=== PATIENT | female | born 1985 | race Caucasian/White ===

== ENCOUNTER 2016-07-28 01:24 | Emergency (ER) | payer MEDICAID, SELFPAY ==
[2016-07-28] MEDS ORDERED: KETOROLAC 30 MG/ML VIAL (J1885) As Ordered ONE ×2 (06:02→06:45)
[2016-07-28 06:36] LABS: BASO % 0.3 % (0.0-1.0); EOS # 0.1 K/mm3 (0.0-0.50); EOS % 0.5 % (0.0-3.0); LARGE UNSTAINED CELL # 0.2 K/mm3 (0.0-0.4); LARGE UNSTAINED CELL % 1.7 % (0.0-4.0); LYMPH % 14.7 % (24.0-44.0); MEAN CORPUSCULAR HEMOGLOBIN 30.7 pg (27.0-33.0); MEAN CORPUSCULAR HGB CONC 34.5 g/dl (32.0-36.5); MEAN CORPUSCULAR VOLUME 88.8 fl (80.0-96.0); MONO # 0.7 K/mm3 (0.0-0.8); MONO % 5.2 % (0.0-5.0); NEUTROPHILS # 10.2 K/mm3 (1.8-7.7); NEUTROPHILS % 77.5 % (36.0-66.0); PLATELET COUNT, AUTOMATED 279 k/mm3 (150-450); RED CELL DISTRIBUTION WIDTH 11.3 % (11.5-14.5); WHITE BLOOD COUNT 13.2 K/mm3 (4.0-10.0)
[2016-07-28 06:59] LABS: ANION GAP 9 MEQ/L (8-16); BLOOD UREA NITROGEN 10 MG/DL (7-18); CALCIUM LEVEL 8.8 MG/DL (8.5-10.1); CARBON DIOXIDE LEVEL 26 MEQ/L (21-32); CHLORIDE LEVEL 99 MEQ/L (98-107); CREATININE FOR GFR 0.55 MG/DL (0.55-1.02); GLOMERULAR FILTRATION RATE > 60.0 (>60); GLUCOSE, FASTING 90 MG/DL (70-105); POTASSIUM SERUM 4.1 MEQ/L (3.5-5.1); SODIUM LEVEL 134 MEQ/L (136-145)
[2016-07-28 07:03] LABS: CONTROL LINE HCG INT CTR LINE PRESENT
--- NOTE | 2016-07-28 09:22 | EDDOCDS ---
Nurse's Notes [facility] Name: Shahrzad Carrion Age: 31 yrs Sex: Female : 1985 Arrival Date: 07/28/2016 Time: 01:24 Bed I8 / 16 Private MD: Diagnosis: Dental caries, unspecified-phlegmon - Osman's angina Presentation: 07/28 01:33 Presenting complaint: Patient states: Dental pain that began about a month ago when she lf1 broke several of her lower left and right molars. Pt reports that she did not seek dental care following th incident. Pt. reports since then she has developed increased pain in her jaw and throat with difficulty swallowing. Swelling noted to lower jaw and neck. Pain is currently 6/10. No drooling noted. Adult Sepsis Screening: The patient does not have new or worsening altered mentation. Patient's respiratory rate is less than 22. Systolic blood pressure is greater than 100. Patient has a qSOFA score of 0- Negative Sepsis Screen. Suicide/Homicide risk assessment- the patient denies having any suicidal and/or homicidal ideations and does not present with any other emotional, behavioral or mental health complaints. Status: Patient is not a counseling services manager or dependent. Transition of care: patient was not received from another setting of care. 01:33 Acuity: DENNIS Level 3 lf1 01:33 Method Of Arrival: Walkin/Carried/Asstd lf1 Triage Assessment: 01:42 General: Appears uncomfortable, Behavior is cooperative. Pain: Location: face Pain lf1 currently is 6 out of 10 on a pain scale. HIV screening NA for this visit Offered previously. Neurological: Level of Consciousness is awake, alert, Oriented to person, place, time. EENT: jaw and neck with swelling noted. Respiratory: Respiratory effort is even, unlabored. GI: Denies nausea, vomiting. Derm: Swollen area noted on chin, right jaw and left jaw. Injury Description: No known injury. 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 none - PMHx: heroin abuse; - PSHx: none; - Social history: Smoking status: Patient uses tobacco products, current every day smoker. No barriers to communication noted, The patient speaks fluent Sami, Speaks appropriately for age, Preferred Language: Sami. - Family history: Not pertinent. - : The pt / caregiver states he / she is not on anticoagulants. Home medication list is obtained from the patient. - Exposure Risk Screening:: None identified. Screenin:43 Screening information is obtained from the patient. Fall risk: No risks identified. lf1 Assistance ADL's: requires no assistance with activities of daily living. Abuse/DV Screen: The patient / caregiver reports he/she is: not in a situation that causes fear, pain or injury. Nutritional screening: No deficits noted. Advance Directives: Currently, there is no health care proxy. There is no active DNR order. home support is adequate. Assessment: 03:29 General: Appears uncomfortable, unkempt, Behavior is cooperative, Pt awaiting room lf1 assignment. Pain: Location: left jaw and right jaw and face Pain currently is 6 out of 10 on a pain scale. Neurological: Level of Consciousness is awake, alert. Respiratory: Respiratory effort is even, unlabored. Derm: Swollen area noted on left jaw and right jaw. 05:30 Adult Sepsis Screening: The patient does not have new or worsening altered mentation. cf2 Patient's respiratory rate is less than 22. Systolic blood pressure is greater than 100. Patient has a qSOFA score of 0- Negative Sepsis Screen. EENT: Poor dentition noted. Swelling to lower jaw. 08:00 General: Appears in no apparent distress, comfortable, Behavior is appropriate for age, ead cooperative. Neurological: Level of Consciousness is awake, alert, obeys commands. Respiratory: Airway is patent Respiratory effort is even, unlabored. Derm: Skin is pink, warm & dry. Swollen area noted on left jaw and right jaw. 09:00 General: Upon this nurse entering room to start IV, pt states she needs to go home and ead take care of her dogs prior to being admitted. This nurse strongly advises pt to remain in ER for treatment and admission as recommended by Dr. Valerio. Pt states she has no one to check on her dogs for her. Dr. Valerio to bedside to again advise pt against leaving AMA. Pt states she will return to ER for admission. Pt states she estimates it will take her approximately 30-45 minutes to go home and then return. Pt signed AMA form. Charge Nurse aware, PSA made aware . 09:12 Respiratory: Airway is patent Respiratory effort is even, unlabored. Derm: Skin is ead pink, warm & dry. Vital Signs: 01:33 BP 132 / 71; Pulse 119; Resp 18; Temp 98.2(T); Pulse Ox 97% on R/A; Weight 95.25 kg; lf1 Height 5 ft. 7 in. (170.18 cm); Pain 6/10; 03:29 BP 145 / 76; Pulse 111; Resp 18; Temp 98.0(T); Pulse Ox 98% on R/A; Pain 6/10; lf1 09:12 BP 139 / 71; Pulse 94; Resp 16; Temp 98.1(O); Pulse Ox 97% on R/A; Pain 4/10; ead 01:33 Body Mass Index 32.89 (95.25 kg, 170.18 cm) 1 Vitals: 01:33 Log In Time: July 28, 2016 at 01:26. 1 ED Course: 01:26 Patient visited by Verito See Reg. hs2 01:26 Patient moved to Waiting hs2 01:33 Patient moved to Triage 2 lf1 01:38 Triage Initiated lf1 01:45 Patient moved to Waiting lf1 01:57 [facility] Payment Agreement was scanned into [employer] and attached to record. pm4 03:31 Patient visited by Dia Tyson RN. lf1 03:31 Ice pack to injury. lf1 05:15 Patient moved to I8 / 16 mdr 05:23 Kassi Mathews,MAHI is Primary Nurse. cf2 05:24 Patient visited by Kassi Mathews,MAHI. cf2 05:30 The patient / caregiver is instructed regarding the plan of care and ED course. Patient cf2 has correct armband on for positive identification. Placed in gown. Bed in low position. Call light in reach. Side rails up X 1. Side rails up X2. Property :Personal belongings accompany Pt. Door closed. Noise minimized. Visitors limited. Lights dimmed. Moved to private room. Ice pack to injury. Verbal reassurance given. Warm blanket given. Pillow given. Head of bed elevated. 05:30 No procedures done that require assistance. cf2 05:39 Urbano Milian DO is Attending Physician. mm11 05:39 Patient visited by Urbano Milian DO. mm11 05:47 Patient visited by Urbano Milian DO. mm11 06:24 Patient visited by Kassi Mathews,MAHI. cf2 06:25 -Blood Culture Sent. cf2 06:25 CRP Sent. cf2 06:25 BMP Sent. cf2 06:25 CBC with Diff Sent. cf2 06:25 BLOOD CULTURES Sent. cf2 06:57 Patient visited by Kassi Mathews,MAHI. cf2 06:59 Radha Kemp,RN is Primary Nurse. ead 07:39 Attending Physician role handed off by Urbano Milian DO sd1 07:39 Marlena Moses MD is Attending Physician. sd1 08:06 Patient visited by Radha Kemp,MAHI. ead Administered Medications: 06:30 Drug: ketorolac 30 mg [ketorolac 30 mg/mL (1 mL) injection solution (1 mL)] Route: IVP; cf2 Site: left antecubital; Order Results: Lab Order: CBC with Diff; SPEC'M 07/28/16 06:21 Test: WHITE BLOOD COUNT; Value: 13.2; Range: 4.0-10.0; Abnormal: Above high normal; Units: K/mm3; Status: F Test: RED BLOOD COUNT; Value: 4.64; Range: 4.00-5.40; Units: M/mm3; Status: F Test: HEMOGLOBIN; Value: 14.2; Range: 12.0-16.0; Units: g/dl; Status: F Test: HEMATOCRIT; Value: 41.2; Range: 36.0-47.0; Units: %; Status: F Test: MEAN CORPUSCULAR VOLUME; Value: 88.8; Range: 80.0-96.0; Units: fl; Status: F Test: MEAN CORPUSCULAR HEMOGLOBIN; Value: 30.7; Range: 27.0-33.0; Units: pg; Status: F Test: MEAN CORPUSCULAR HGB CONC; Value: 34.5; Range: 32.0-36.5; Units: g/dl; Status: F Test: RED CELL DISTRIBUTION WIDTH; Value: 11.3; Range: 11.5-14.5; Abnormal: Below low normal; Units: %; Status: F Test: PLATELET COUNT, AUTOMATED; Value: 279; Range: 150-450; Units: k/mm3; Status: F Test: NEUTROPHILS %; Value: 77.5; Range: 36.0-66.0; Abnormal: Above high normal; Units: %; Status: F Test: LYMPH %; Value: 14.7; Range: 24.0-44.0; Abnormal: Below low normal; Units: %; Status: F Test: MONO %; Value: 5.2; Range: 0.0-5.0; Abnormal: Above high normal; Units: %; Status: F Test: EOS %; Value: 0.5; Range: 0.0-3.0; Units: %; Status: F Test: BASO %; Value: 0.3; Range: 0.0-1.0; Units: %; Status: F Test: LARGE UNSTAINED CELL %; Value: 1.7; Range: 0.0-4.0; Units: %; Status: F Test: NEUTROPHILS #; Value: 10.2; Range: 1.8-7.7; Abnormal: Above high normal; Units: K/mm3; Status: F Test: LYMPH #; Value: 2.0; Range: 1.5-4.5; Units: K/mm3; Status: F Test: MONO #; Value: 0.7; Range: 0.0-0.8; Units: K/mm3; Status: F Test: EOS #; Value: 0.1; Range: 0.0-0.50; Units: K/mm3; Status: F Test: BASO #; Value: 0.0; Range: 0.0-0.2; Units: K/mm3; Status: F Test: LARGE UNSTAINED CELL #; Value: 0.2; Range: 0.0-0.4; Units: K/mm3; Status: F Lab Order: [facility]; SPEC'M 07/28/16 06:21 Test: GLUCOSE, FASTING; Value: 90; Range: 70-105; Units: MG/DL; Status: F Test: BLOOD UREA NITROGEN; Value: 10; Range: 7-18; Units: MG/DL; Status: F Test: CREATININE FOR GFR; Value: 0.55; Range: 0.55-1.02; Units: MG/DL; Status: F Test: GLOMERULAR FILTRATION RATE; Value: > 60.0; Range: >60; Status: F Test: SODIUM LEVEL; Value: 134; Range: 136-145; Abnormal: Below low normal; Units: MEQ/L; Status: F Test: POTASSIUM SERUM; Value: 4.1; Range: 3.5-5.1; Units: MEQ/L; Status: F Test: CHLORIDE LEVEL; Value: 99; Range: 98-107; Units: MEQ/L; Status: F Test: CARBON DIOXIDE LEVEL; Value: 26; Range: 21-32; Units: MEQ/L; Status: F Test: ANION GAP; Value: 9; Range: 8-16; Units: MEQ/L; Status: F Test: CALCIUM LEVEL; Value: 8.8; Range: 8.5-10.1; Units: MG/DL; Status: F Test Note: ; Units are mL/min/1.73 m2 Chronic Kidney Disease Staging per NKF: Stage I & II GFR >=60 Normal to Mildly Decreased Stage III GFR 30-59 Moderately Decreased Stage IV GFR 15-29 Severely Decreased Stage V GFR <15 Very Little GFR Left ESRD GFR <15 on COMPONENT TECHNICIAN Lab Order: CRP; SPEC'M 07/28/16 06:21 Test: C REACTIVE PROTEIN QUANTITATIV; Value: 6.73; Range: 0.00-0.30; Abnormal: Above high normal; Units: MG/DL; Status: F Lab Order: HCG,Serum Qualitative; SPEC'M 07/28/16 06:21 Test: HCG, SERUM QUALITATIVE; Value: NEGATIVE; Range: NEGATIVE; Status: F Outcome: 09:08 Patient left against medical advice. sd1 09:19 Discharge Assessment: Patient awake and alert. obeys commands, Oriented to person, ead place and time. patient administered narcotics - no. The following High Risk Discharge criteria are identified: Yes, due to AMA status. PSA made aware. The patient is leaving AMA: AMA form signed. The patient is leaving AMA: Notification of AMA status is made to the charge nurse, the social work specialist, the ED attending physician. Condition: stable. Discharge instructions given to pt signed AMA form and advised to return to ER for admission. Pt states she will return shortly. CT Study completed. Property :Personal belongings accompany Pt. 09:21 Patient left the ED. ead Signatures: Marlena Moses MD MD sd1 Dia TysonRN RN lf1 Urbano Milian, DO DO mm11 Radha KempRN RN ead Norman Bruce, DESKTOP PUBLISHING ASSOCIATE DESKTOP PUBLISHING ASSOCIATE mdr Verito See, Reg Reg hs2 Kassi Mathews,RN RN cf2 Demetri Dickinson, Reg Reg pm4 Corrections: (The following items were deleted from the chart) : 09:19 BP 139 / 71; Pulse 94bpm; Resp 16bpm; Pulse Ox 97% RA; Temp 98.1F Oral; Pain ead 10/17; ead 09:16 General: Upon this nurse entering room to start IV, pt states she needs to go ead home and take care of her dogs prior to being admitted. This nurse strongly advises pt to remain in ER for treatment and admission as recommended by Dr. Valerio. Pt states she has no one to check on her dogs for her. Dr. Valerio to bedside to again advise pt against leaving AMA. Pt states she will return to ER for admission. Pt states she estimates it will take her approximately 30-45 minutes to go home and then return. Pt signed AMA form. Charge Nurse aware, PSA made aware . ead 09:16 Respiratory: Airway is patent Respiratory effort is even, unlabored, ead ead 09:16 Derm: Skin is pink, warm & dry. ead ead MTDD
--- NOTE | 2016-07-28 09:22 | EDDOCDS ---
Physician Documentation [facility] Name: Shahrzad Carrion Age: 31 yrs Sex: Female : 1985 Arrival Date: 07/28/2016 Time: 01:24 Bed I8 / Private MD: Disposition: 07/28/16 09:08 Patient has left against medical advice. Impression: Dental caries, unspecified - phlegmon - Osman's angina. - Patients states they are going to Home/Self Care. - Condition is Fair. Medication Reconciliation, Local Pharmacy Hours form. Follow up: Emergency Department; When: As soon as possible. - Problem is new. - Symptoms are unchanged. Historical: - Allergies: No known drug Allergies; - Home Meds: 1. none - PMHx: heroin abuse; - PSHx: none; - Social history: Smoking status: Patient uses tobacco products, current every day smoker. No barriers to communication noted, The patient speaks fluent [place] Rican, Speaks appropriately for age, Preferred Language: [place]ican. - Family history: Not pertinent. - : The pt / caregiver states he / she is not on anticoagulants. Home medication list is obtained from the patient. - Exposure Risk Screening:: None identified. 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 7 in. (170.18 cm); Pain 6/10; 03:29 BP 145 / 76; Pulse 111; Resp 18; Temp 98.0(T); Pulse Ox 98% on R/A; Pain 6/10; lf1 09:12 BP 139 / 71; Pulse 94; Resp 16; Temp 98.1(O); Pulse Ox 97% on R/A; Pain 4/10; ead 01:33 Body Mass Index 32.89 (95.25 kg, 170.18 cm) lf1 MDM: 01:57 [facility] Payment Agreement was scanned into [employer] and attached to record. pm4 05:48 IV Saline Lock ordered. mm11 05:48 -Blood Culture (Adults Only), peripheral from different site, or from device/port/PICC mm11 etc. if present ordered. 05:48 ketorolac 30 mg IVP once ordered. mm11 05:48 CBC with Diff Ordered. EDMS 05:48 BMP Ordered. EDMS 05:48 CRP Ordered. EDMS 05:48 -Blood Culture Ordered. EDMS 05:48 Financial registration complete. pm4 06:20 -Blood Culture (Adults Only), peripheral from different site, or from device/port/PICC kb5 etc. if present complete. 06:21 BLOOD CULTURES Ordered. EDMS 06:48 HCG,Serum Qualitative Ordered. EDMS 06:48 CBC with Diff Reviewed. mm11 06:48 CT Neck Without Contrast Ordered. EDMS 07:17 BMP Reviewed. mm11 07:17 CRP Reviewed. mm11 07:17 HCG,Serum Qualitative Reviewed. mm11 08:59 NS 0.9% 1000 ml IV at 150 mL/hr continuous ordered. sd1 09:00 Piperacillin-Tazobactam 4.5 grams IVPB once over 30 mins; dilute in 50mL of NS or D5W sd1 ordered. Administered Medications: 06:30 Drug: ketorolac 30 mg [ketorolac 30 mg/mL (1 mL) injection solution (1 mL)] Route: IVP; cf2 Site: left antecubital; Signatures: Dispatcher [employer] Marlena Thompson MD MD sd1 Garett Rojas, LOGISTICS LOSS PREVENTION MANAGER LOGISTICS LOSS PREVENTION MANAGER kb5 Dia Tyson,MAHI RN lf1 Urbano Milian, DO mm11 Radha Kemp,RN RN ead Kassi MathewsRN RN cf2 Demetri Dickinson, Reg Reg pm4 The chart was reviewed and I authenticate all verbal orders and agree with the evaluation and treatment provided.Attachments: 01:57 [facility] Payment Agreement pm4 MTDD
--- NOTE | 2016-07-28 09:36 | REP ---
CT NECK WITHOUT CONTRAST: HISTORY: Swelling. There is soft tissue thickening along the buccal surface of the bodies and symphysis on the mandible. There is thickening of the platysma muscle. Stranding is present in the submandibular spaces and overlying subcutaneous tissue . These findings are consistent with a phlegmon. The naso- and hypopharynx, larynx and subglottic trachea are normal in appearance. The salivary and thyroid glands are normal. An enlarged lymph node 1.1 cm in width is present in the right internal jugular chain at the level of the hypopharynx. Enlarged lymph nodes 1.2 and 1.5 cm in width are present in the left submandibular space. Small lymph nodes less than 1 cm in size are present in the left internal jugular chain, posterior triangles, right submandibular and submental areas. The lung apices are clear. Minimal mucosal thickening is present in the right maxillary sinus. IMPRESSION: The above findings are consistent with a phlegmon along the buccal surfaces of the bodies and symphysis of the mandible. Signed by Chay Elise MD 07/28/2016 09:50 A
--- NOTE | 2016-07-30 10:21 | EDDOCDS ---
Physician Documentation [facility] Name: Shahrzad Carrion Age: 31 yrs Sex: Female : 1985 Arrival Date: 07/28/2016 Time: 01:24 Bed I8 / Private MD: Disposition: 07/28/16 09:08 Patient has left against medical advice. Impression: Dental caries, unspecified - phlegmon - Osman's angina. - Patients states they are going to Home/Self Care. - Condition is Fair. Medication Reconciliation, Local Pharmacy Hours form. Follow up: Emergency Department; When: As soon as possible. - Problem is new. - Symptoms are unchanged. Historical: - Allergies: No known drug Allergies; - Home Meds: 1. none - PMHx: heroin abuse; - PSHx: none; - Social history: Smoking status: Patient uses tobacco products, current every day smoker. No barriers to communication noted, The patient speaks fluent Polish, Speaks appropriately for age, Preferred Language: Polish. - Family history: Not pertinent. - : The pt / caregiver states he / she is not on anticoagulants. Home medication list is obtained from the patient. - Exposure Risk Screening:: None identified. 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 7 in. (170.18 cm); Pain 6/10; 03:29 BP 145 / 76; Pulse 111; Resp 18; Temp 98.0(T); Pulse Ox 98% on R/A; Pain 6/10; lf1 09:12 BP 139 / 71; Pulse 94; Resp 16; Temp 98.1(O); Pulse Ox 97% on R/A; Pain 4/10; ead 01:33 Body Mass Index 32.89 (95.25 kg, 170.18 cm) lf1 MDM: 01:57 [facility] was scanned into [employer] and attached to record. pm4 05:48 IV Saline Lock ordered. mm11 05:48 -Blood Culture (Adults Only), peripheral from different site, or from device/port/PICC mm11 etc. if present ordered. 05:48 ketorolac 30 mg IVP once ordered. mm11 05:48 CBC with Diff Ordered. EDMS 05:48 BMP Ordered. EDMS 05:48 CRP Ordered. EDMS 05:48 -Blood Culture Ordered. EDMS 05:48 Financial registration complete. pm4 06:20 -Blood Culture (Adults Only), peripheral from different site, or from device/port/PICC kb5 etc. if present complete. 06:21 BLOOD CULTURES Ordered. EDMS 06:48 HCG,Serum Qualitative Ordered. EDMS 06:48 CBC with Diff Reviewed. mm11 06:48 CT Neck Without Contrast Ordered. EDMS 07:17 BMP Reviewed. mm11 07:17 CRP Reviewed. mm11 07:17 HCG,Serum Qualitative Reviewed. mm11 08:59 NS 0.9% 1000 ml IV at 150 mL/hr continuous ordered. sd1 09:00 Piperacillin-Tazobactam 4.5 grams IVPB once over 30 mins; dilute in 50mL of NS or D5W sd1 ordered. 13:25 Refusal of Services was scanned into [employer] and attached to record. gb 13:26 T-Sheet-- Draft Copy was scanned into [employer] and attached to record. gb 13:26 Radiology Report was scanned into [employer] and attached to record. gb Administered Medications: 06:30 Drug: ketorolac 30 mg [ketorolac 30 mg/mL (1 mL) injection solution (1 mL)] Route: IVP; cf2 Site: left antecubital; Signatures: Dispatcher [employer] Marlena Thompson MD MD sd1 Flores Rose, Reg Reg gb Garett Rojas, HUMAN RESOURCES ANALYST HUMAN RESOURCES ANALYST kb5 Dia TysonRN RN lf1 Urbano Milian, DO mm11 Radha Kemp,RN RN Kassi KhanRN RN cf2 Demetri Dickinson, Reg Reg pm4 The chart was reviewed and I authenticate all verbal orders and agree with the evaluation and treatment provided.Attachments: 01:57 [facility] Payment Agreement pm4 13:26 T-Sheet-- Draft Copy gb Chart Complete MTDD
--- NOTE | 2016-07-30 10:21 | EDDOCDS ---
Physician Documentation [facility] Name: Shahrzad Carrion Age: 31 yrs Sex: Female : 1985 Arrival Date: 07/28/2016 Time: 01:24 Bed I8 / Private MD: Disposition: 07/28/16 09:08 Patient has left against medical advice. Impression: Dental caries, unspecified - phlegmon - Osman's angina. - Patients states they are going to Home/Self Care. - Condition is Fair. Medication Reconciliation, Local Pharmacy Hours form. Follow up: Emergency Department; When: As soon as possible. - Problem is new. - Symptoms are unchanged. Historical: - Allergies: No known drug Allergies; - Home Meds: 1. none - PMHx: heroin abuse; - PSHx: none; - Social history: Smoking status: Patient uses tobacco products, current every day smoker. No barriers to communication noted, The patient speaks fluent Lithuanian, Speaks appropriately for age, Preferred Language: Lithuanian. - Family history: Not pertinent. - : The pt / caregiver states he / she is not on anticoagulants. Home medication list is obtained from the patient. - Exposure Risk Screening:: None identified. 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 7 in. (170.18 cm); Pain 6/10; 03:29 BP 145 / 76; Pulse 111; Resp 18; Temp 98.0(T); Pulse Ox 98% on R/A; Pain 6/10; lf1 09:12 BP 139 / 71; Pulse 94; Resp 16; Temp 98.1(O); Pulse Ox 97% on R/A; Pain 4/10; ead 01:33 Body Mass Index 32.89 (95.25 kg, 170.18 cm) lf1 MDM: 01:57 [facility] [place] Agreement was scanned into [employer] and attached to record. pm4 05:48 IV Saline Lock ordered. mm11 05:48 -Blood Culture (Adults Only), peripheral from different site, or from device/port/PICC mm11 etc. if present ordered. 05:48 ketorolac 30 mg IVP once ordered. mm11 05:48 CBC with Diff Ordered. EDMS 05:48 BMP Ordered. EDMS 05:48 CRP Ordered. EDMS 05:48 -Blood Culture Ordered. EDMS 05:48 Financial registration complete. pm4 06:20 -Blood Culture (Adults Only), peripheral from different site, or from device/port/PICC kb5 etc. if present complete. 06:21 BLOOD CULTURES Ordered. EDMS 06:48 HCG,Serum Qualitative Ordered. EDMS 06:48 CBC with Diff Reviewed. mm11 06:48 CT Neck Without Contrast Ordered. EDMS 07:17 BMP Reviewed. mm11 07:17 CRP Reviewed. mm11 07:17 HCG,Serum Qualitative Reviewed. mm11 08:59 NS 0.9% 1000 ml IV at 150 mL/hr continuous ordered. sd1 09:00 Piperacillin-Tazobactam 4.5 grams IVPB once over 30 mins; dilute in 50mL of NS or D5W sd1 ordered. 13:25 Refusal of Services was scanned into [employer] and attached to record. gb 13:26 T-Sheet-- Draft Copy was scanned into [employer] and attached to record. gb 13:26 Radiology Report was scanned into [employer] and attached to record. gb Administered Medications: 06:30 Drug: ketorolac 30 mg [ketorolac 30 mg/mL (1 mL) injection solution (1 mL)] Route: IVP; cf2 Site: left antecubital; Signatures: Dispatcher [employer] Marlena Thompson MD MD sd1 Flores Rose, Reg Reg gb Garett Rojas, FUR SEWER FUR SEWER kb5 Dia TysonRN RN lf1 Urbano Milian, DO mm11 Radha Kemp,RN RN Kassi KhanRN RN cf2 Demetri Dickinson, Reg Reg pm4 The chart was reviewed and I authenticate all verbal orders and agree with the evaluation and treatment provided.Attachments: 01:57 [facility] Agreement pm4 13:26 T-Sheet-- Draft Copy gb Chart Complete MTDD
--- NOTE | 2016-07-30 10:22 | EDDOCDS ---
Nurse's Notes [facility] Name: Shahrzad Carrion Age: 31 yrs Sex: Female : 1985 Arrival Date: 07/28/2016 Time: 01:24 Bed I8 / 16 Private MD: Diagnosis: Dental caries, unspecified-phlegmon - Osman's angina Presentation: 07/28 01:33 Presenting complaint: Patient states: Dental pain that began about a month ago when she lf1 broke several of her lower left and right molars. Pt reports that she did not seek dental care following th incident. Pt. reports since then she has developed increased pain in her jaw and throat with difficulty swallowing. Swelling noted to lower jaw and neck. Pain is currently 6/10. No drooling noted. Adult Sepsis Screening: The patient does not have new or worsening altered mentation. Patient's respiratory rate is less than 22. Systolic blood pressure is greater than 100. Patient has a qSOFA score of 0- Negative Sepsis Screen. Suicide/Homicide risk assessment- the patient denies having any suicidal and/or homicidal ideations and does not present with any other emotional, behavioral or mental health complaints. Status: Patient is not a customer services supervisor or dependent. Transition of care: patient was not received from another setting of care. 01:33 Acuity: DENNIS Level 3 lf1 01:33 Method Of Arrival: Walkin/Carried/Asstd lf1 Triage Assessment: 01:42 General: Appears uncomfortable, Behavior is cooperative. Pain: Location: face Pain lf1 currently is 6 out of 10 on a pain scale. HIV screening NA for this visit Offered previously. Neurological: Level of Consciousness is awake, alert, Oriented to person, place, time. EENT: jaw and neck with swelling noted. Respiratory: Respiratory effort is even, unlabored. GI: Denies nausea, vomiting. Derm: Swollen area noted on chin, right jaw and left jaw. Injury Description: No known injury. EVENT MANAGEMENT CONSULTANT: 01:33 3, 1, Living 2, LMP 04/2016 lf1 Historical: - Allergies: No known drug Allergies; - Home Meds: 1. none - PMHx: heroin abuse; - PSHx: none; - Social history: Smoking status: Patient uses tobacco products, current every day smoker. No barriers to communication noted, The patient speaks fluent Lao, Speaks appropriately for age, Preferred Language: Lao. - Family history: Not pertinent. - : The pt / caregiver states he / she is not on anticoagulants. Home medication list is obtained from the patient. - Exposure Risk Screening:: None identified. Screenin:43 Screening information is obtained from the patient. Fall risk: No risks identified. lf1 Assistance ADL's: requires no assistance with activities of daily living. Abuse/DV Screen: The patient / caregiver reports he/she is: not in a situation that causes fear, pain or injury. Nutritional screening: No deficits noted. Advance Directives: Currently, there is no health care proxy. There is no active DNR order. home support is adequate. Assessment: 03:29 General: Appears uncomfortable, unkempt, Behavior is cooperative, Pt awaiting room lf1 assignment. Pain: Location: left jaw and right jaw and face Pain currently is 6 out of 10 on a pain scale. Neurological: Level of Consciousness is awake, alert. Respiratory: Respiratory effort is even, unlabored. Derm: Swollen area noted on left jaw and right jaw. 05:30 Adult Sepsis Screening: The patient does not have new or worsening altered mentation. cf2 Patient's respiratory rate is less than 22. Systolic blood pressure is greater than 100. Patient has a qSOFA score of 0- Negative Sepsis Screen. EENT: Poor dentition noted. Swelling to lower jaw. 08:00 General: Appears in no apparent distress, comfortable, Behavior is appropriate for age, ead cooperative. Neurological: Level of Consciousness is awake, alert, obeys commands. Respiratory: Airway is patent Respiratory effort is even, unlabored. Derm: Skin is pink, warm & dry. Swollen area noted on left jaw and right jaw. 09:00 General: Upon this nurse entering room to start IV, pt states she needs to go home and ead take care of her dogs prior to being admitted. This nurse strongly advises pt to remain in ER for treatment and admission as recommended by Dr. Valerio. Pt states she has no one to check on her dogs for her. Dr. Valerio to bedside to again advise pt against leaving AMA. Pt states she will return to ER for admission. Pt states she estimates it will take her approximately 30-45 minutes to go home and then return. Pt signed AMA form. Charge Nurse aware, PSA made aware . 09:12 Respiratory: Airway is patent Respiratory effort is even, unlabored. Derm: Skin is ead pink, warm & dry. Social Work Consult: 12:16 LWBS/AMA AMA: Patient is refusing further stabilizing treatment at [facility], although ca offered treatment regardless of method of payment or ability to pay. Patient is aware that this action is being undertaken against the advice of the medical staff at [facility]. Pt. has capacity to understand the potential consequences of this choice. pt did notify ED staff. Patient / guardian did sign Refusal of Services form. Pt left before being seen by PSA. Vital Signs: 01:33 BP 132 / 71; Pulse 119; Resp 18; Temp 98.2(T); Pulse Ox 97% on R/A; Weight 95.25 kg; lf1 Height 5 ft. 7 in. (170.18 cm); Pain 6/10; 03:29 BP 145 / 76; Pulse 111; Resp 18; Temp 98.0(T); Pulse Ox 98% on R/A; Pain 6/10; lf1 09:12 BP 139 / 71; Pulse 94; Resp 16; Temp 98.1(O); Pulse Ox 97% on R/A; Pain 4/10; ead 01:33 Body Mass Index 32.89 (95.25 kg, 170.18 cm) [facility] Vitals: 01:33 Log In Time: July 28, 2016 at 01:26. 1 ED Course: 01:26 Patient visited by eVrito See Reg. hs2 01:26 Patient moved to Waiting hs2 01:33 Patient moved to Triage 2 lf1 01:38 Triage Initiated lf1 01:45 Patient moved to Waiting lf1 01:57 [facility] Payment Agreement was scanned into [employer] and attached to record. pm4 03:31 Patient visited by Dia Tyson RN. lf1 03:31 Ice pack to injury. lf1 05:15 Patient moved to I8 / 16 mdr 05:23 Kassi Mathews,RN is Primary Nurse. cf2 05:24 Patient visited by Kassi Mathews,MAHI. cf2 05:30 The patient / caregiver is instructed regarding the plan of care and ED course. Patient cf2 has correct armband on for positive identification. Placed in gown. Bed in low position. Call light in reach. Side rails up X 1. Side rails up X2. Property :Personal belongings accompany Pt. Door closed. Noise minimized. Visitors limited. Lights dimmed. Moved to private room. Ice pack to injury. Verbal reassurance given. Warm blanket given. Pillow given. Head of bed elevated. 05:30 No procedures done that require assistance. cf2 05:39 Urbano Milian DO is Attending Physician. mm11 05:39 Patient visited by Urbano Milian DO. mm11 05:47 Patient visited by Urbano Milian DO. mm11 06:24 Patient visited by Kassi Mathews,RN. cf2 06:25 -Blood Culture Sent. cf2 06:25 CRP Sent. cf2 06:25 BMP Sent. cf2 06:25 CBC with Diff Sent. cf2 06:25 BLOOD CULTURES Sent. cf2 06:57 Patient visited by Kassi Mathews,RN. cf2 06:59 Radha Kemp,RN is Primary Nurse. ead 07:39 Attending Physician role handed off by Urbano Milian DO sd1 07:39 Marlena Moses MD is Attending Physician. sd1 08:06 Patient visited by Radha Kemp,MAHI. ead 09:48 CT Neck Without Contrast Returned. EDMS 13:25 Refusal of Services was scanned into [employer] and attached to record. gb 13:26 T-Sheet-- Draft Copy was scanned into [employer] and attached to record. gb 13:26 Radiology Report was scanned into [employer] and attached to record. gb 07/29 06:27 Patient name changed from Shahrzad\S\Lula\S\Hedger\S\ to Shahrzad\S\C\S\Hedger. EDMS Administered Medications: 07/28 06:30 Drug: ketorolac 30 mg [ketorolac 30 mg/mL (1 mL) injection solution (1 mL)] Route: IVP; cf2 Site: left antecubital; Attachments: 13:25 Refusal of Services gb Order Results: Lab Order: CBC with Diff; SPEC'M 07/28/16 06:21 Test: WHITE BLOOD COUNT; Value: 13.2; Range: 4.0-10.0; Abnormal: Above high normal; Units: K/mm3; Status: F Test: RED BLOOD COUNT; Value: 4.64; Range: 4.00-5.40; Units: M/mm3; Status: F Test: HEMOGLOBIN; Value: 14.2; Range: 12.0-16.0; Units: g/dl; Status: F Test: HEMATOCRIT; Value: 41.2; Range: 36.0-47.0; Units: %; Status: F Test: MEAN CORPUSCULAR VOLUME; Value: 88.8; Range: 80.0-96.0; Units: fl; Status: F Test: MEAN CORPUSCULAR HEMOGLOBIN; Value: 30.7; Range: 27.0-33.0; Units: pg; Status: F Test: MEAN CORPUSCULAR HGB CONC; Value: 34.5; Range: 32.0-36.5; Units: g/dl; Status: F Test: RED CELL DISTRIBUTION WIDTH; Value: 11.3; Range: 11.5-14.5; Abnormal: Below low normal; Units: %; Status: F Test: PLATELET COUNT, AUTOMATED; Value: 279; Range: 150-450; Units: k/mm3; Status: F Test: NEUTROPHILS %; Value: 77.5; Range: 36.0-66.0; Abnormal: Above high normal; Units: %; Status: F Test: LYMPH %; Value: 14.7; Range: 24.0-44.0; Abnormal: Below low normal; Units: %; Status: F Test: MONO %; Value: 5.2; Range: 0.0-5.0; Abnormal: Above high normal; Units: %; Status: F Test: EOS %; Value: 0.5; Range: 0.0-3.0; Units: %; Status: F Test: BASO %; Value: 0.3; Range: 0.0-1.0; Units: %; Status: F Test: LARGE UNSTAINED CELL %; Value: 1.7; Range: 0.0-4.0; Units: %; Status: F Test: NEUTROPHILS #; Value: 10.2; Range: 1.8-7.7; Abnormal: Above high normal; Units: K/mm3; Status: F Test: LYMPH #; Value: 2.0; Range: 1.5-4.5; Units: K/mm3; Status: F Test: MONO #; Value: 0.7; Range: 0.0-0.8; Units: K/mm3; Status: F Test: EOS #; Value: 0.1; Range: 0.0-0.50; Units: K/mm3; Status: F Test: BASO #; Value: 0.0; Range: 0.0-0.2; Units: K/mm3; Status: F Test: LARGE UNSTAINED CELL #; Value: 0.2; Range: 0.0-0.4; Units: K/mm3; Status: F Lab Order: BMP; SPEC'M 07/28/16 06:21 Test: GLUCOSE, FASTING; Value: 90; Range: 70-105; Units: MG/DL; Status: F Test: BLOOD UREA NITROGEN; Value: 10; Range: 7-18; Units: MG/DL; Status: F Test: CREATININE FOR GFR; Value: 0.55; Range: 0.55-1.02; Units: MG/DL; Status: F Test: GLOMERULAR FILTRATION RATE; Value: > 60.0; Range: >60; Status: F Test: SODIUM LEVEL; Value: 134; Range: 136-145; Abnormal: Below low normal; Units: MEQ/L; Status: F Test: POTASSIUM SERUM; Value: 4.1; Range: 3.5-5.1; Units: MEQ/L; Status: F Test: CHLORIDE LEVEL; Value: 99; Range: 98-107; Units: MEQ/L; Status: F Test: CARBON DIOXIDE LEVEL; Value: 26; Range: 21-32; Units: MEQ/L; Status: F Test: ANION GAP; Value: 9; Range: 8-16; Units: MEQ/L; Status: F Test: CALCIUM LEVEL; Value: 8.8; Range: 8.5-10.1; Units: MG/DL; Status: F Test Note: ; Units are mL/min/1.73 m2 Chronic Kidney Disease Staging per NKF: Stage I & II GFR >=60 Normal to Mildly Decreased Stage III GFR 30-59 Moderately Decreased Stage IV GFR 15-29 Severely Decreased Stage V GFR <15 Very Little GFR Left ESRD GFR <15 on CERTIFIED CREDIT COUNSELOR Lab Order: CRP; SPEC'M 07/28/16 06:21 Test: C REACTIVE PROTEIN QUANTITATIV; Value: 6.73; Range: 0.00-0.30; Abnormal: Above high normal; Units: MG/DL; Status: F Lab Order: -Blood Culture; SPEC'M 07/28/16 06:21 Test: BLOOD CULTURE; Value: No growth after 24 hours . All specimens observed; Status: F Test: BLOOD CULTURE; Value: for 5 days. Results final at that time.; Status: F Test: BLOOD CULTURE; Value: No Growth after 48 hours. All Specimens observed; Status: F Test: BLOOD CULTURE; Value: for 7 days. Results final at that time.; Status: F Lab Order: BLOOD CULTURES; SPEC'M 07/28/16 06:21 Test: BLOOD CULTURE; Value: No growth after 24 hours . All specimens observed; Status: F Test: BLOOD CULTURE; Value: for 5 days. Results final at that time.; Status: F Test: BLOOD CULTURE; Value: No Growth after 48 hours. All Specimens observed; Status: F Test: BLOOD CULTURE; Value: for 7 days. Results final at that time.; Status: F Lab Order: HCG,Serum Qualitative; SPEC'M 07/28/16 06:21 Test: HCG, SERUM QUALITATIVE; Value: NEGATIVE; Range: NEGATIVE; Status: F Radiology Order: CT Neck Without Contrast Test: CT Neck Without Contrast REASON FOR EXAMINATION: swelling; CT NECK WITHOUT CONTRAST: HISTORY: Swelling.; ; There is soft tissue thickening along the buccal surface of the bodies and; symphysis on the mandible. There is thickening of the platysma muscle.; Stranding is present in the submandibular spaces and overlying subcutaneous; tissue . These findings are consistent with a phlegmon. The naso- and; hypopharynx, larynx and subglottic trachea are normal in appearance. The; salivary and thyroid glands are normal. An enlarged lymph node 1.1 cm in width; is present in the right internal jugular chain at the level of the hypopharynx.; Enlarged lymph nodes 1.2 and 1.5 cm in width are present in the left; submandibular space. Small lymph nodes less than 1 cm in size are present in the; left internal jugular chain, posterior triangles, right submandibular and; submental areas. The lung apices are clear. Minimal mucosal thickening is; present in the right maxillary sinus.; ; IMPRESSION:; ; The above findings are consistent with a phlegmon along the buccal surfaces of; the bodies and symphysis of the mandible.; ; ; Signed by; Chay Elise MD 07/28/2016 09:50 A; Outcome: 09:08 Patient left against medical advice. sd1 09:19 Discharge Assessment: Patient awake and alert. obeys commands, Oriented to person, ead place and time. patient administered narcotics - no. The following High Risk Discharge criteria are identified: Yes, due to AMA status. PSA made aware. The patient is leaving AMA: AMA form signed. The patient is leaving AMA: Notification of AMA status is made to the charge nurse, the hospital social worker, the ED attending physician. Condition: stable. Discharge instructions given to pt signed AMA form and advised to return to ER for admission. Pt states she will return shortly. CT Study completed. Property :Personal belongings accompany Pt. 09:21 Patient left the ED. ead Signatures: Dispatcher [employer] EDMS Marlena Moses MD MD sd1 Evon Bruce, PSA PSA ca Flores Rose, Reg Reg gb Dia Tyson,RN RN lf1 Urbano Milian, DO DO mm11 Radha Kemp,RN RN ead Norman Bruce, LU ECHO VASCULAR TECHNOLOGIST Verito Bernal, Reg Reg hs2 Kassi Mathews,RN RN cf2 Demetri Dickinson, Reg Reg pm4 Corrections: (The following items were deleted from the chart) 09:19 09:19 BP 139 / 71; Pulse 94bpm; Resp 16bpm; Pulse Ox 97% RA; Temp 98.1F Oral; Pain ead 4/10; ead 09:19 09:16 General: Upon this nurse entering room to start IV, pt states she needs to go ead home and take care of her dogs prior to being admitted. This nurse strongly advises pt to remain in ER for treatment and admission as recommended by Dr. Valerio. Pt states she has no one to check on her dogs for her. Dr. Valerio to bedside to again advise pt against leaving AMA. Pt states she will return to ER for admission. Pt states she estimates it will take her approximately 30-45 minutes to go home and then return. Pt signed AMA form. Charge Nurse aware, PSA made aware . speedyd Respiratory: Airway is patent Respiratory effort is even, unlabored, ead ead Derm: Skin is pink, warm & dry. ead speedyd Chart Complete MTDD
== END 2016-07-28 09:10 | disposition left against medical advice (07) ==
LOC: M ED 01:24
DX: K02.9 Dental caries, unspecified (principal); I20.9 Angina pectoris, unspecified; F11.10 Opioid abuse, uncomplicated; F17.210 Nicotine dependence, cigarettes, uncomplicated
CPT/HCPCS: 36415; 70490; 80048; 84703; 85025; 86140; 87040; 96374; 99284; J1885

== ENCOUNTER 2016-07-28 20:41 | Inpatient (IN) | payer MEDICAID ==
[~2016-07-28] VITALS: Ht 170.2 cm; Wt 95.0 kg
[2016-07-28] MEDS ORDERED: ZOSYN 3.375 GM VIAL (J2543) As Ordered ONE (22:19)
[2016-07-28] MEDS ORDERED: KETOROLAC 30 MG/ML VIAL (J1885) As Ordered ONE (22:19)
[2016-07-28] MEDS ORDERED: ONDANSETRON 4MG/2ML VIAL (J2405) IV PRN (22:30)
[2016-07-28] MEDS ORDERED: KETOROLAC 30 MG/ML VIAL (J1885) IV PRN (22:30)
[2016-07-28] MEDS ORDERED: VANCOMYCIN 1000 MG/20 ML VIAL (J3370) As Ordered ONE (23:05)
--- NOTE | 2016-07-28 23:33 | EDDOCDS ---
Nurse's Notes [facility] Name: Shahrzad Carrion Age: 31 yrs Sex: Female : 1985 Arrival Date: 07/28/2016 Time: 20:41 Bed I2 / M2 Private MD: NO PRIMARY PHYSICIAN, . Diagnosis: Cellulitis and abscess of mouth-Osman's Angina;Dental caries-Fracture of Tooth #19 and #30 Presentation: 07/28 20:46 Presenting complaint: Patient states: PER PT WAS SEEN HERE EARLIER TODAY & SIGNED OUT tm5 AMA BACK FOR ADMISSION TO THE HOSPITAL FOR FACIAL SWELLING/CELLULITIS. Adult Sepsis Screening: The patient does not have new or worsening altered mentation. Patient's respiratory rate is less than 22. Systolic blood pressure is greater than 100. Patient has a qSOFA score of 0- Negative Sepsis Screen. Suicide/Homicide risk assessment- the patient denies having any suicidal and/or homicidal ideations and does not present with any other emotional, behavioral or mental health complaints. Status: Patient is not a room service associate or dependent. Transition of care: patient was not received from another setting of care. 20:46 Acuity: DENNIS Level 3 tm5 20:46 Method Of Arrival: Walkin/Carried/Asstd tm5 Triage Assessment: 20:47 General: Appears uncomfortable, Behavior is appropriate for age, cooperative. Pain: tm5 Location: left cheek and left jaw Pain currently is 6 out of 10 on a pain scale. Quality of pain is described as pressure, throbbing. Pt Declines HIV testing. Neurological: Level of Consciousness is awake, alert, Oriented to person, place, time. EENT: LEFT SIDED FACIAL SWELLING NOTED. Respiratory: Airway is patent Respiratory effort is even, unlabored, Respiratory pattern is regular, symmetrical. Derm: Skin is pink, warm & dry. normal. 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 none - PMHx: heroin abuse; - PSHx: none; - Social history: Smoking status: Patient uses tobacco products, current every day smoker. No barriers to communication noted, The patient speaks fluent Maltese. - Family history: Not pertinent. - : The pt / caregiver states he / she is not on anticoagulants. Home medication list is obtained from the patient. - Exposure Risk Screening:: None identified. Screenin:50 Screening information is obtained from the patient. Fall risk: No risks identified. tm5 Assistance ADL's: requires no assistance with activities of daily living. Abuse/DV Screen: The patient / caregiver reports he/she is: not in a situation that causes fear, pain or injury. Nutritional screening: No deficits noted. Advance Directives: Currently, there is no health care proxy. There is no active DNR order. home support is adequate. Assessment: 21:39 General: Appears in no apparent distress, Behavior is cooperative. EENT: pt has af2 swelling noted to right jaw. . Respiratory: Airway is patent Respiratory effort is even, unlabored. 22:29 General: Appears in no apparent distress, Behavior is cooperative, pt lying quietly on af2 stretcher, offers no complaints at this time.. 23:23 General: Appears in no apparent distress, Behavior is cooperative, pt resting quietly af2 with eyes closed. arouses easily to name. offers no complaints. admit nurse at bedside with pt. . Vital Signs: 20:43 BP 145 / 69; Pulse 134; Resp 16; Temp 97.9(O); Pulse Ox 95% on R/A; Weight 95.25 kg; sew Height 5 ft. 7 in. (170.18 cm); Pain 6/10; 23:29 BP 109 / 59; Pulse 92; Resp 18; Temp 98.2(O); Pulse Ox 94% on R/A; Pain 3/10; rs6 20:43 Body Mass Index 32.89 (95.25 kg, 170.18 cm) sew Vitals: 20:43 Log In Time: July 28, 2016 at 20:39. RN notified that patient meets Red Flag sew criteria. ED Course: 20:42 Patient visited by Marlena Todd. sew 20:42 Patient moved to Waiting sew 20:43 NO PRIMARY PHYSICIAN, . is Private Physician. sew 20:44 Patient visited by Marlena Todd. sew 20:44 Adelina Rosenbaum PA-C is PHCP. ef1 20:44 Urbano Milian DO is Attending Physician. ef1 20:44 Patient moved to Pre RCE sew 20:45 Patient moved to I2 / M2 ef1 20:47 Triage Initiated tm5 20:47 Family accompanied patient. tm5 20:48 Patient visited by Adelina Rosenbaum PA-C. ef1 21:05 Jakub Villatoro is Hospitalizing Provider. ef1 21:37 The patient / caregiver is instructed regarding the plan of care and ED course. af2 21:37 Missed attempts: 22 gauge X 2 in right wrist, in right antecubital area. No procedures af2 done that require assistance. 21:40 Patient visited by Shahrzad French RN. af2 21:49 [facility] Payment Agreement was scanned into [employer] and attached to record. zo 21:52 Patient name changed from Shahrzad\S\Lula\S\Hedger\S\ to Shahrzad\S\C\S\Hedger. EDMS 21:54 Quentin Jackson MD is Hospitalizing Provider. ef1 22:29 Patient visited by Shahrzad French RN. af2 22:49 Patient visited by Shahrzad French RN. af2 23:24 Patient visited by Shahrzad French RN. af2 23:30 Patient visited by Lisa Giraldo PCA. rs6 Administered Medications: 22:28 Drug: Piperacillin-Tazobactam 3.375 grams [piperacillin-tazobactam 3.375 gram af2 intravenous solution] Route: IVPB; Infused Over: 30 mins; Site: left antecubital; 22:28 Drug: ketorolac 30 mg [ketorolac 30 mg/mL (1 mL) injection solution (1 mL)] Route: IVP; af2 Site: left antecubital; 23:16 Drug: vancomycin 1 grams [vancomycin 1,000 mg intravenous injection] Route: IVPB; af2 Infused Over: 60 mins; Site: left antecubital; Order Results: There are currently no results for this order. Outcome: 21:05 Decision to Hospitalize by Provider. ef1 22:47 Discharge Assessment: Patient awake, alert and oriented x 3. No cognitive and/or af2 functional deficits noted. Patient verbalized understanding of disposition instructions. patient administered narcotics - no. The following High Risk Discharge criteria are identified: None. Admitted to Med/Surg accompanied by tech, via wheelchair, with chart. Condition: stable. No special radiology studies were completed. Property :Personal belongings accompany Pt. 23:32 Patient left the ED. rs6 Signatures: Dispatcher [employer] Janice Gonzalez Erica, PA-C PA-C ef1 Marlena Todd, Lisa, WASTE DUSTER WASTE DUSTER rs6 Shahrzad French,RN RN af2 Martha Vaz,RN RN tm5 MTDD
--- NOTE | 2016-07-28 23:33 | EDDOCDS ---
Physician Documentation [facility] Name: Shahrzad Carrion Age: 31 yrs Sex: Female : 1985 Arrival Date: 07/28/2016 Time: 20:41 Bed I2 / M2 Private MD: NO PRIMARY PHYSICIAN, . Disposition: 07/28/16 21:05 Hospitalization ordered by Quentin Jackson for Inpatient Admission. Preliminary diagnosis are Cellulitis and abscess of mouth - Osman's Angina, Dental caries - Fracture of Tooth #19 and #30. - Bed requested for 4 [place]. - Status is Inpatient Admission. rs6 - Condition is Stable. - Problem is new. - Symptoms have improved. Historical: - Allergies: no known allergies; - Home Meds: 1. none - PMHx: heroin abuse; - PSHx: none; - Social history: Smoking status: Patient uses tobacco products, current every day smoker. No barriers to communication noted, The patient speaks fluent Indonesian. - Family history: Not pertinent. - : The pt / caregiver states he / she is not on anticoagulants. Home medication list is obtained from the patient. - Exposure Risk Screening:: None identified. 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 7 in. (170.18 cm); Pain 6/10; 23:29 BP 109 / 59; Pulse 92; Resp 18; Temp 98.2(O); Pulse Ox 94% on R/A; Pain 3/10; rs6 20:43 Body Mass Index 32.89 (95.25 kg, 170.18 cm) sew MDM: 20:48 BED REQUEST+ADM ordered. EDMS 20:54 IV Saline Lock ordered. ef1 20:54 Piperacillin-Tazobactam 3.375 grams IVPB once over 30 mins; dilute in 50mL of NS or D5W ef1 ordered. 20:54 vancomycin 1 grams IVPB once over 60 mins; dilute in 250mL of NS or D5W ordered. ef1 21:13 ketorolac 30 mg IVP once ordered. ef1 21:47 Financial registration complete. zo 21:49 [facility] Payment Agreement was scanned into [employer] and attached to record. zo 22:28 Admission / Observation Status ordered. EDMS 22:28 REGULAR DIET ordered. EDMS 22:47 Attending Doctor Change: ordered. EDMS 22:51 Chest, 2 view PA, Lat Ordered. EDMS Administered Medications: 22:28 Drug: Piperacillin-Tazobactam 3.375 grams [piperacillin-tazobactam 3.375 gram af2 intravenous solution] Route: IVPB; Infused Over: 30 mins; Site: left antecubital; 22:28 Drug: ketorolac 30 mg [ketorolac 30 mg/mL (1 mL) injection solution (1 mL)] Route: IVP; af2 Site: left antecubital; 23:16 Drug: vancomycin 1 grams [vancomycin 1,000 mg intravenous injection] Route: IVPB; af2 Infused Over: 60 mins; Site: left antecubital; Signatures: Dispatcher [employer] EDMS Janice Corona Erica, PA-C PA-C ef1 Lisa Giraldo, DENTAL FLOSS PACKER DENTAL FLOSS PACKER rs6 Shahrzad FrenchRN RN af2 Dia Bedoya RN RN lmg Martha VazRN RN tm5 The chart was reviewed and I authenticate all verbal orders and agree with the evaluation and treatment provided.Attachments: 21:49 [facility] Payment Agreement zo MTDD
[2016-07-28 23:50] VITALS: BP 116/57
[2016-07-29] MEDS: methylPREDNISolone INJ 125 MG/2 ML VIAL (J2930) IV SCH ×4 (00:42→18:30)
--- NOTE | 2016-07-29 02:00 | REP ---
Clinical: Acute cough . Comparison: 02/26/2014 . Technique: PA and lateral. Findings: The mediastinum and cardiac silhouette are normal. The lung mccord are clear and without acute consolidation, effusion, or pneumothorax. The skeletal structures are intact and normal. Impression: 1. No acute cardiopulmonary process. Signed by Howard Galvan MD 07/29/2016 01:51 A
--- NOTE | 2016-07-29 04:10 | HPE ---
DATE OF ADMISSION: 07/28/2016 This is a patient of the [facility]. CHIEF COMPLAINT: Facial swelling. The following is a summary of presentation: This is a 31-year-old who has had 3 days of left-sided facial swelling that increased and was incredibly painful last night, so painful in fact that she could not sleep. She was cold and sweaty. Her left lower jaw is described as achy. It has impaired her swallowing. She has had drooling. It has been difficult to talk. It feels better when she puts cold water in her mouth. She has never had this happen before. She has been coughing, producing greenish sputum. She recently left a 4-day inpatient detoxification at [facility]. Prior to that she had been using heroin daily for at least 2 years. She has been again using heroin in the last 2 days because of her pain. PAST MEDICAL HISTORY: Notable for: 1. Anxiety. 2. Morbid obesity. 3. Bipolar. 4. Borderline personality. 5. Alcoholism. 6. History of self-mutilation. 6. Depression. 7. History of heroin dependence. SURGICAL HISTORY: Notable for wisdom teeth extraction. She has no known drug allergies. She is not taking any medications at home. Socially, her family is aware of her drug addiction. She continues to smoke. She is currently in [facility]. FAMILY HISTORY: Notable for two children, ages eight and 14. The mother, who is 48, with a history of vulvar cancer, thyroid disease. Father 51 with diabetes and alcoholism. REVIEW OF SYSTEMS: Notable for no headache, no visual changes. No runny nose. No chest pain. No shortness of breath, orthopnea. No paroxysmal nocturnal dyspnea. No change in bowel or bladder habits. She is not suffering from constipation. Otherwise unremarkable. PHYSICAL EXAMINATION: Blood pressure 139/71, pulse 94, respiratory rate 16, temperature 98.1, pulse oximetry 97% on room air. Weighs 95 kg with a body mass index of 32.9. She is awake, appropriately interactive, somewhat flattened affect, but pleasantly conversant. Head is normocephalic. Sinuses are nontender. There is induration, swelling and warmth without fluctuance to her left mandible and onto her submental region. The area is tender. She is able to open her mouth. I am able to visualize her soft palate, which has good range of motion. Her voice seems to be of normal character, although she has limiting movement of her jaw. She is not drooling on exam. Breathing is symmetrical, rested. I:E ratio is 1:3. No wheezes, rales or rhonchi. Heart is in a regular rate and rhythm. Abdomen is soft, doughy, nontender There is no lower extremity edema. Dorsalis pedis pulses are 2+ bilaterally. She has a number of tattoos noted. White cell count 13.2, hemoglobin 14.2 and platelets of 279. Sodium 134, potassium 4.1, chloride 99, carbon dioxide 26, BUN 10, creatinine 0.55, and glucose of 90. HCG is negative. Chest x-ray is pending. My assessment is as follows: This is a 31-year-old with left-sided facial cellulitis most likely due to poor dentitia. The patient will require a 2-midnight hospital stay for antibiotics, steroids, and continued ENT consultation. Plan is as follows: 1. Infectious disease. Patient has been given antibiotics in the emergency department. These will be continued in the form of Unasyn. Unfortunately, I asked for blood cultures to be sent, which do not seem to have been sent prior to antibiotic administration. Will continue with Solu-Medrol and Unasyn for her cellulitis with likely dental source. For pain management, will give Toradol given her history of difficulty with opiates. 2. Patient has history of heroin use and addiction. Is currently status post detoxification and what would appear to be reinitiation of use. She would prefer to avoid opiate medications and has had some pain relief with Toradol in the emergency department. 3. Patient has history of depression. Not currently on any medications. 4. Patient has history of alcoholism. Is denying current alcohol use. 5. Deep venous thrombosis (DVT) prophylaxis will be Lovenox. 6. Patient continues to use tobacco. Will make a nicotine patch available to her. 7. Patient carries a diagnosis in the outpatient setting of morbid obesity. Current body mass index (BMI) would appear to be 33.
[2016-07-29] MEDS: AMPICILLIN SOD/SULBACTAM SOD 3 GM in D5W MINI-BAG PLUS 100 ML IV SCH ×4 (04:49→21:53)
[2016-07-29 06:00] VITALS: BP 120/58
--- NOTE | 2016-07-29 07:40 | IPNPDOC ---
Assessment/Plan Date Seen The patient was seen on 07/29/16. Problems Problems: (1) Facial cellulitis Status: Acute Problem Text: Unasyn day #2. Solumedrol 80 mg IV q 8 hrs. Toradol prn pain. ENT consult today. (2) Heroin abuse Status: Acute Problem Specific Plan: Monitor Clinically Problem Text: Monitor for withdrawl symptoms. Plan / VTE VTE Prophylaxis Ordered?: Yes (lovenox) Plan Diet: Advance Plan Text Attending note: I saw and evaluated the patient, greater than plan of care as discussed and documented. However, patient was beginning to show signs of heroin withdrawal. Patient was ordered Suboxone to prevent withdrawal during treatment of cellulitis. Lele Nathan MD Subjective Review of Systems CC/HPI The patient is a 31-year-old female admitted with a reason for visit of Facial Cellulitis. Events since last encounter Patient feels facial swelling and pain is significantly better. Hx of recent relapse and heroin use. Feels well. Denies withdrawl symptoms at this time. Last use was 24+ hours ago. Constitutional: Reports: Fever (99.2), Denies: Chills ENT: Reports: Dysphagia (mild-moderate), Sore Throat, Denies: Ear Pain, Head Aches, Post Nasal Drip, Sinus Congestion Skin: Denies: Rash Pulmonary: Denies: Cough, Dyspnea Cardiovascular: Denies: Chest Pain, Palpitations Gastrointestinal: Denies: Abdominal Pain, Diarrhea, Nausea, Vomiting Genitourinary: Denies: Dysuria, Frequency Psych: Reports: Mood Normal Objective Physical Examination General Exam: Positive: Alert, No Acute Distress Eye Exam: Positive: PERRLA ENT Exam: Positive: Other ENT (left facial swelling noted with submandibular fullness and pain on palpation. Left lower dentsion and pharynx with white exudate. ) Neck Exam: Positive: Lymphadenopathy (+ left cervical LAD, tender), Supple, Negative: JVD Chest Exam: Positive: Clear to auscultation Heart Exam: Positive: Normal S2, Rate Normal Abdomen Exam: Positive: Normal bowel sounds, Soft, Negative: Tenderness Extremity Exam: Negative: Clubbing, Cyanosis, Edema Skin Exam: Positive: Nl turgor and temperature, Negative: Breakdown Neuro Exam: Positive: Normal Gait, Normal Speech Psych Exam: Positive: Anxiety (mild), Mental status NL Vital Signs/I&O Vital Signs Date Time Temp Pulse Resp B/P Pulse Ox O2 Delivery O2 Flow Rate FiO2 07/28/16 23:50 96.7 81 18 116/57 95 Room Air I&O- Last 24 Hours up to 6 AM 07/29/16 05:59 Intake Total 240 ml Output Total 0 ml Balance 240 ml Bharti Abarca AIRCRAFT ENGINE MECHANIC SUPERVISOR Jul 29, 2016 07:40 LELE NATHAN MD Aug 02, 2016 19:37
[2016-07-29] MEDS ORDERED: SENOKOT S TAB PO SCH (09:00)
[2016-07-29] MEDS: MOM 30ML SUSPENSION UDC PO SCH (10:27)
[2016-07-29] MEDS: NICOTINE 21MG/24HR 1 EA TRANSDERMAL TD SCH (10:28)
[2016-07-29 10:34] LABS: BASO % 0.2 % (0.0-1.0); EOS % 0.3 % (0.0-3.0); LARGE UNSTAINED CELL # 0.1 K/mm3 (0.0-0.4); LARGE UNSTAINED CELL % 0.6 % (0.0-4.0); LYMPH # 0.9 K/mm3 (1.5-4.5); LYMPH % 8.8 % (24.0-44.0); MEAN CORPUSCULAR HEMOGLOBIN 30.2 pg (27.0-33.0); MEAN CORPUSCULAR HGB CONC 33.5 g/dl (32.0-36.5); MEAN CORPUSCULAR VOLUME 90.3 fl (80.0-96.0); MONO # 0.1 K/mm3 (0.0-0.8); MONO % 1.4 % (0.0-5.0); NEUTROPHILS # 9.2 K/mm3 (1.8-7.7); NEUTROPHILS % 88.8 % (36.0-66.0); PLATELET COUNT, AUTOMATED 290 k/mm3 (150-450); RED CELL DISTRIBUTION WIDTH 11.1 % (11.5-14.5); WHITE BLOOD COUNT 10.3 K/mm3 (4.0-10.0)
[2016-07-29] MEDS: ENOXAPARIN 40 MG/0.4 ML SYRINGE (J1650) SC SCH (10:36)
--- NOTE | 2016-07-29 10:40 | HPE ---
DATE OF ADMISSION: 07/29/2016 Shahrzad is a 31-year-old woman who presents with a history of facial swelling and pain. She reports this started 2 days before. The patient did present to the emergency department earlier today and then discharged herself home. She has some history of dental problems. She has a history of heroin addiction. Apparently she has had problems with her jaw for a month. The patient has some pain with swallowing, but is able to swallow. She has no airway issues. She has not had a previous problem like this. EXAMINATION: On examination it shows she is alert and oriented. Examination shows she has facial swelling which is more prominent on the left side. Most of the swelling is over the body of the mandible on the right side, a bit in the submandibular area. There is no edema of the forehead or the mouth. There is edema and erythema adjacent to the teeth in the gingival sulcus on the left side. She has some carious teeth on that side. She has good range of motion of her mandible. Oropharynx looks normal. Examination of the neck shows above findings, there is no soft tissue edema in the lower neck. Most of the swelling is just over the body of the mandible, some edema in the area beneath the mandible. IMPRESSION: The patient has perimandibular swelling on the left side, a facial cellulitis. There is no evidence of pus accumulation on the CT scan. The area is rather soft, so I think that it is early on. This is likely secondary to a dental infection. The patient requires intravenous (IV) antibiotics and steroids. Patient does require treatment by a dentist.
[2016-07-29 10:56] LABS: ALBUMIN 3.7 GM/DL (3.2-5.2); ALBUMIN/GLOBULIN RATIO 0.88 (1.00-1.93); ALKALINE PHOSPHATASE 136 U/L (45-117); ALT/SGPT 18 U/L (12-78); ANION GAP 11 MEQ/L (8-16); AST/SGOT 13 U/L (15-37); BILIRUBIN,TOTAL 0.3 MG/DL (0.2-1.0); BLOOD UREA NITROGEN 20 MG/DL (7-18); CALCIUM LEVEL 9.2 MG/DL (8.5-10.1); CARBON DIOXIDE LEVEL 26 MEQ/L (21-32); CHLORIDE LEVEL 101 MEQ/L (98-107); CREATININE FOR GFR 0.94 MG/DL (0.55-1.02); GLUCOSE, FASTING 230 MG/DL (70-105); POTASSIUM SERUM 4.2 MEQ/L (3.5-5.1); SODIUM LEVEL 138 MEQ/L (136-145); TOTAL PROTEIN 7.9 GM/DL (6.4-8.2)
[2016-07-29 11:26] LABS: GLOMERULAR FILTRATION RATE > 60.0 (>60)
[2016-07-29 14:00] VITALS: BP 121/78
[2016-07-29] MEDS ORDERED: BUPRENORPHINE/NALOXONE 2-0.5MG SUBLINGUAL TABLET(SUBOXONE) SL ONE (18:45)
[2016-07-29 22:00] VITALS: BP 125/59
[2016-07-30] MEDS: methylPREDNISolone INJ 125 MG/2 ML VIAL (J2930) IV SCH ×2 (00:49→05:00)
[2016-07-30] MEDS: AMPICILLIN SOD/SULBACTAM SOD 3 GM in D5W MINI-BAG PLUS 100 ML IV SCH ×4 (04:59→21:21)
[2016-07-30 05:58] LABS: MEAN CORPUSCULAR HEMOGLOBIN 29.6 pg (27.0-33.0); MEAN CORPUSCULAR VOLUME 92.5 fl (80.0-96.0); WHITE BLOOD COUNT 21.3 K/mm3 (4.0-10.0)
[2016-07-30 06:00] VITALS: BP 110/64
[2016-07-30 06:17] LABS: ALBUMIN 3.6 GM/DL (3.2-5.2); ALBUMIN/GLOBULIN RATIO 0.77 (1.00-1.93); ALKALINE PHOSPHATASE 126 U/L (45-117); ALT/SGPT 18 U/L (12-78); ANION GAP 8 MEQ/L (8-16); AST/SGOT 8 U/L (15-37); BILIRUBIN,TOTAL 0.2 MG/DL (0.2-1.0); BLOOD UREA NITROGEN 19 MG/DL (7-18); CALCIUM LEVEL 9.1 MG/DL (8.5-10.1); CARBON DIOXIDE LEVEL 27 MEQ/L (21-32); CHLORIDE LEVEL 104 MEQ/L (98-107); CREATININE FOR GFR 0.82 MG/DL (0.55-1.02); GLOMERULAR FILTRATION RATE > 60.0 (>60); GLUCOSE, FASTING 174 MG/DL (70-105); POTASSIUM SERUM 4.6 MEQ/L (3.5-5.1); SODIUM LEVEL 139 MEQ/L (136-145); TOTAL PROTEIN 8.3 GM/DL (6.4-8.2)
--- NOTE | 2016-07-30 08:25 | IPNPDOC ---
Assessment/Plan Date Seen The patient was seen on 07/30/16. Problems Problems: (1) Facial cellulitis Status: Acute Problem Text: Unasyn day #3 07/30/16 WBC 21.3 (07/29 10.3), admission 13.2-? steroid effect, decreased to prednisone 40 mg po daily (on 2 concern for airway compromise 2 STS) . Toradol prn pain. ENT consult in record Will need dental referral on DC (2) Heroin abuse Status: Acute Problem Specific Plan: Monitor Clinically Problem Text: Monitor for withdrawl symptoms. Requesting Methadone. Refusing [id number]. Recent tx in [facility] for detox, had relapse for 2 days prior to admission at [facility]. Plan / VTE VTE Prophylaxis Ordered?: Yes (lovenox) Plan Diet: Advance Subjective Review of Systems CC/HPI The patient is a 31-year-old female admitted with a reason for visit of Facial Cellulitis. Events since last encounter Continues to improve in symptoms. ENT eval: dental etiology. CT scan negative. Patient declining Suboxone due to prior hx of migraine/QUINONES and anxiety with Suboxone use. Requesting Methadone. Constitutional: Denies: Chills, Fever, Malaise, Night Sweats, Weakness Pulmonary: Denies: Cough, Dyspnea Cardiovascular: Denies: Chest Pain, Lt Headedness, Orthopnea, Palpitations, Paroxysmal Noc. Dyspnea Gastrointestinal: Denies: Abdominal Pain, Diarrhea, Nausea, Vomiting Genitourinary: Denies: Dysuria, Frequency, Incontinence, Retention Neurological: Denies: Change in speech, Confusion, Numbness, Weakness Psych: Reports: Mood Normal, Denies: Depression, Memory Issues Objective Physical Examination General Exam: Positive: Alert, No Acute Distress Eye Exam: Positive: PERRLA ENT Exam: Positive: Other ENT (left facial swelling noted with submandibular fullness and pain on palpation. Left lower dentsion and pharynx with white exudate. ) Neck Exam: Positive: Lymphadenopathy (+ left cervical LAD, tender), Supple, Negative: JVD Chest Exam: Positive: Clear to auscultation Heart Exam: Positive: Normal S2, Rate Normal Abdomen Exam: Positive: Normal bowel sounds, Soft, Negative: Tenderness Extremity Exam: Negative: Clubbing, Cyanosis, Edema Skin Exam: Positive: Nl turgor and temperature, Negative: Breakdown Neuro Exam: Positive: Normal Gait, Normal Speech Psych Exam: Positive: Anxiety (mild), Mental status NL Vital Signs/I&O Vital Signs Date Time Temp Pulse Resp B/P Pulse Ox O2 Delivery O2 Flow Rate FiO2 07/30/16 06:00 98.1 67 16 110/64 95 Room Air I&O- Last 24 Hours up to 6 AM 07/30/16 06:00 Intake Total 1660 ml Output Total 1800 ml Balance -140 ml Laboratory Data Labs 24H Laboratory Tests 2 07/29/16 10:18: Blood Urea Nitrogen 20#H, Creatinine 0.94#, Sodium Level 138, Potassium Level 4.2, Chloride Level 101, Carbon Dioxide Level 26, Calcium Level 9.2, Aspartate Amino Transf (AST/SGOT) 13L, Alanine Aminotransferase (ALT/SGPT) 18, Alkaline Phosphatase 136H, Total Bilirubin 0.3, Total Protein 7.9, Albumin 3.7, Albumin/ Globulin Ratio 0.88L, Anion Gap 11, White Blood Count 10.3H, Red Blood Count 4.55, Hemoglobin 13.8, Hematocrit 41.1, Mean Corpuscular Volume 90.3, Mean Corpuscular Hemoglobin 30.2, Mean Corpuscular Hemoglobin Concent 33.5, Red Cell Distribution Width 11.1L, Platelet Count 290, Neutrophils (%) (Auto) 88.8H, Lymphocytes (%) (Auto) 8.8L, Monocytes (%) (Auto) 1.4, Eosinophils (%) (Auto) 0.3, Basophils (%) (Auto) 0.2, Neutrophils # (Auto) 9.2H, Lymphocytes # (Auto) 0.9L, Monocytes # (Auto) 0.1, Eosinophils # (Auto) 0.0, Basophils # (Auto) 0.0, Glomerular Filtration Rate > 60.0, Large Unclassified Cells # 0.1, Large Unclassified Cells % 0.6 07/30/16 05:38: Blood Urea Nitrogen 19H, Creatinine 0.82, Sodium Level 139, Potassium Level 4.6 , Chloride Level 104, Carbon Dioxide Level 27, Calcium Level 9.1, Aspartate Amino Transf (AST/SGOT) 8L, Alanine Aminotransferase (ALT/SGPT) 18, Alkaline Phosphatase 126H, Total Bilirubin 0.2, Total Protein 8.3H, Albumin 3.6, Albumin/ Globulin Ratio 0.77L, Anion Gap 8, Glomerular Filtration Rate > 60.0, Atypical Lymphocytes 3, Lymphocytes (Manual) 7L, Monocytes (Manual) 1, Neutrophils 89H, Platelet Estimate NORMAL, Red Blood Cell Morphology NORMAL CBC/BMP Laboratory Tests 07/29/16 10:18 Calcium Level 9.2, Aspartate Amino Transf (AST/SGOT) 13 L, Alanine Aminotransferase (ALT/SGPT) 18, Alkaline Phosphatase 136 H, Total Bilirubin 0.3 , Total Protein 7.9, Albumin 3.7, Red Blood Count 4.55, Mean Corpuscular Volume 90.3, Mean Corpuscular Hemoglobin 30.2, Mean Corpuscular Hemoglobin Concent 33.5 , Red Cell Distribution Width 11.1 L, Neutrophils (%) (Auto) 88.8 H, Lymphocytes (%) (Auto) 8.8 L, Monocytes (%) (Auto) 1.4, Eosinophils (%) (Auto) 0.3, Basophils (%) (Auto) 0.2, Neutrophils # (Auto) 9.2 H, Lymphocytes # (Auto) 0.9 L, Monocytes # (Auto) 0.1, Eosinophils # (Auto) 0.0, Basophils # (Auto) 0.0 07/30/16 05:38 Calcium Level 9.1, Aspartate Amino Transf (AST/SGOT) 8 L, Alanine Aminotransferase (ALT/SGPT) 18, Alkaline Phosphatase 126 H, Total Bilirubin 0.2 , Total Protein 8.3 H, Albumin 3.6 Bharti Abarca Jul 30, 2016 08:25 Austin Mitchell M.D. Jul 30, 2016 13:00
[2016-07-30] MEDS: NICOTINE 21MG/24HR 1 EA TRANSDERMAL TD SCH (10:20)
[2016-07-30] MEDS: MOM 30ML SUSPENSION UDC PO SCH (10:20)
[2016-07-30] MEDS: ENOXAPARIN 40 MG/0.4 ML SYRINGE (J1650) SC SCH (10:20)
[2016-07-30] MEDS: BUPRENORPHINE/NALOXONE 2-0.5MG SUBLINGUAL TABLET(SUBOXONE) SL SCH (10:20)
[2016-07-30 14:00] VITALS: BP 127/65
[2016-07-30 22:00] VITALS: BP 118/58
--- NOTE | 2016-07-31 00:33 | EDDOCDS ---
Nurse's Notes [facility] Name: Shahrzad Carrion Age: 31 yrs Sex: Female : 1985 Arrival Date: 07/28/2016 Time: 20:41 Bed I2 / M2 Private MD: NO PRIMARY PHYSICIAN, . Diagnosis: Cellulitis and abscess of mouth-Osman's Angina;Dental caries-Fracture of Tooth #19 and #30 Presentation: 07/28 20:46 Presenting complaint: Patient states: PER PT WAS SEEN HERE EARLIER TODAY & SIGNED OUT tm5 AMA BACK FOR ADMISSION TO THE HOSPITAL FOR FACIAL SWELLING/CELLULITIS. Adult Sepsis Screening: The patient does not have new or worsening altered mentation. Patient's respiratory rate is less than 22. Systolic blood pressure is greater than 100. Patient has a qSOFA score of 0- Negative Sepsis Screen. Suicide/Homicide risk assessment- the patient denies having any suicidal and/or homicidal ideations and does not present with any other emotional, behavioral or mental health complaints. 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 Transition of care: patient was not received from another setting of care. 20:46 Acuity: DENNIS Level 3 tm5 20:46 Method Of Arrival: Walkin/Carried/Asstd tm5 Triage Assessment: 20:47 General: Appears uncomfortable, Behavior is appropriate for age, cooperative. Pain: tm5 Location: left cheek and left jaw Pain currently is 6 out of 10 on a pain scale. Quality of pain is described as pressure, throbbing. Pt Declines HIV testing. Neurological: Level of Consciousness is awake, alert, Oriented to person, place, time. EENT: LEFT SIDED FACIAL SWELLING NOTED. Respiratory: Airway is patent Respiratory effort is even, unlabored, Respiratory pattern is regular, symmetrical. Derm: Skin is pink, warm & dry. normal. COMPOUND SPECIALIST: 20:47 LMP N/A - Irregular menses tm5 Historical: - Allergies: no known allergies; - Home Meds: 1. none - PMHx: heroin abuse; - PSHx: none; - Social history: Smoking status: Patient uses tobacco products, current every day smoker. No barriers to communication noted, The patient speaks fluent Arabic. - Family history: Not pertinent. - : The pt / caregiver states he / she is not on anticoagulants. Home medication list is obtained from the patient. - Exposure Risk Screening:: None identified. Screenin:50 Screening information is obtained from the patient. Fall risk: No risks identified. tm5 Assistance ADL's: requires no assistance with activities of daily living. Abuse/DV Screen: The patient / caregiver reports he/she is: not in a situation that causes fear, pain or injury. Nutritional screening: No deficits noted. Advance Directives: Currently, there is no health care proxy. There is no active DNR order. home support is adequate. Assessment: 21:39 General: Appears in no apparent distress, Behavior is cooperative. EENT: pt has af2 swelling noted to right jaw. . Respiratory: Airway is patent Respiratory effort is even, unlabored. 22:29 General: Appears in no apparent distress, Behavior is cooperative, pt lying quietly on af2 stretcher, offers no complaints at this time.. 23:23 General: Appears in no apparent distress, Behavior is cooperative, pt resting quietly af2 with eyes closed. arouses easily to name. offers no complaints. admit nurse at bedside with pt. . Vital Signs: 20:43 BP 145 / 69; Pulse 134; Resp 16; Temp 97.9(O); Pulse Ox 95% on R/A; Weight 95.25 kg; sew Height 5 ft. 7 in. (170.18 cm); Pain 6/10; 23:29 BP 109 / 59; Pulse 92; Resp 18; Temp 98.2(O); Pulse Ox 94% on R/A; Pain 3/10; rs6 20:43 Body Mass Index 32.89 (95.25 kg, 170.18 cm) sew Vitals: 20:43 Log In Time: July 28, 2016 at 20:39. RN notified that patient meets Red Flag sew criteria. ED Course: 20:42 Patient visited by Marlena Todd. sew 20:42 Patient moved to Waiting sew 20:43 NO PRIMARY PHYSICIAN, . is Private Physician. sew 20:44 Patient visited by Marlena Todd. sew 20:44 Adelina Rosenbaum PA-C is PHCP. ef1 20:44 Urbano Milian DO is Attending Physician. ef1 20:44 Patient moved to Pre RCE sew 20:45 Patient moved to I2 / M2 ef1 20:47 Triage Initiated tm5 20:47 Family accompanied patient. tm5 20:48 Patient visited by Adelina Rosenbaum PA-C. ef1 21:05 Jakub Villatoro is Hospitalizing Provider. ef1 21:37 The patient / caregiver is instructed regarding the plan of care and ED course. af2 21:37 Missed attempts: 22 gauge X 2 in right wrist, in right antecubital area. No procedures af2 done that require assistance. 21:40 Patient visited by Shahrzad French RN. af2 21:49 [facility] Payment Agreement was scanned into [employer] and attached to record. zo 21:52 Patient name changed from Shahrzad\S\Lula\S\Hedger\S\ to Shahrzad\S\C\S\Hedger. EDMS 21:54 Quentin Jackson MD is Hospitalizing Provider. ef1 22:29 Patient visited by Shahrzad French RN. af2 22:49 Patient visited by Shahrzad French RN. af2 23:24 Patient visited by Shahrzad French RN. af2 23:30 Patient visited by Lisa Giraldo PCA. rs6 07/29 10:40 T-Sheet-- Draft Copy was scanned into [employer] and attached to record. gb Administered Medications: 07/28 22:28 Drug: Piperacillin-Tazobactam 3.375 grams [piperacillin-tazobactam 3.375 gram af2 intravenous solution] Route: IVPB; Infused Over: 30 mins; Site: left antecubital; 22:28 Drug: ketorolac 30 mg [ketorolac 30 mg/mL (1 mL) injection solution (1 mL)] Route: IVP; af2 Site: left antecubital; 23:16 Drug: vancomycin 1 grams [vancomycin 1,000 mg intravenous injection] Route: IVPB; af2 Infused Over: 60 mins; Site: left antecubital; Order Results: There are currently no results for this order. Outcome: 21:05 Decision to Hospitalize by Provider. ef1 22:47 Discharge Assessment: Patient awake, alert and oriented x 3. No cognitive and/or af2 functional deficits noted. Patient verbalized understanding of disposition instructions. patient administered narcotics - no. The following High Risk Discharge criteria are identified: None. Admitted to Med/Surg accompanied by tech, via wheelchair, with chart. Condition: stable. No special radiology studies were completed. Property :Personal belongings accompany Pt. 23:32 Patient left the ED. rs6 Signatures: Dispatcher [employer] EDMS Flores Rose, Reg Reg gb Cj, Adelina Wilkins, PA-C PA-C ef1 Perez, Marlena Vuongmitt, Lisa, DRILLING PLANT OPERATOR DRILLING PLANT OPERATOR rs6 Shahrzad FrenchRN RN af2 Martha Vaz RN RN tm5 Chart Complete MTDD
--- NOTE | 2016-07-31 00:33 | EDDOCDS ---
Physician Documentation [facility] Name: Shahrzad Carrion Age: 31 yrs Sex: Female : 1985 Arrival Date: 07/28/2016 Time: 20:41 Bed I2 / M2 Private MD: NO PRIMARY PHYSICIAN, . Disposition: 07/28/16 21:05 Hospitalization ordered by Quentin Jackson for Inpatient Admission. Preliminary diagnosis are Cellulitis and abscess of mouth - Osman's Angina, Dental caries - Fracture of Tooth #19 and #30. - Bed requested for 4 [place]. - Status is Inpatient Admission. rs6 - Condition is Stable. - Problem is new. - Symptoms have improved. Historical: - Allergies: no known allergies; - Home Meds: 1. none - PMHx: heroin abuse; - PSHx: none; - Social history: Smoking status: Patient uses tobacco products, current every day smoker. No barriers to communication noted, The patient speaks fluent Mohawk. - Family history: Not pertinent. - : The pt / caregiver states he / she is not on anticoagulants. Home medication list is obtained from the patient. - Exposure Risk Screening:: None identified. SPINNER CONTINUOUS: 07/28 20:47 LMP N/A - Irregular menses tm5 Vital Signs: 20:43 BP 145 / 69; Pulse 134; Resp 16; Temp 97.9(O); Pulse Ox 95% on R/A; Weight 95.25 kg / sew 209.99 lbs; Height 5 ft. 7 in. (170.18 cm); Pain 6/10; 23:29 BP 109 / 59; Pulse 92; Resp 18; Temp 98.2(O); Pulse Ox 94% on R/A; Pain 3/10; rs6 20:43 Body Mass Index 32.89 (95.25 kg, 170.18 cm) sew MDM: 20:48 BED REQUEST+ADM ordered. EDMS 20:54 IV Saline Lock ordered. ef1 20:54 Piperacillin-Tazobactam 3.375 grams IVPB once over 30 mins; dilute in 50mL of NS or D5W ef1 ordered. 20:54 vancomycin 1 grams IVPB once over 60 mins; dilute in 250mL of NS or D5W ordered. ef1 21:13 ketorolac 30 mg IVP once ordered. ef1 21:47 Financial registration complete. zo 21:49 [facility] Payment Agreement was scanned into [employer] and attached to record. zo 22:28 Admission / Observation Status ordered. EDMS 22:28 REGULAR DIET ordered. EDMS 22:47 Attending Doctor Change: ordered. EDMS 22:51 Chest, 2 view PA, Lat Ordered. EDMS 07/29 10:40 T-Sheet-- Draft Copy was scanned into [employer] and attached to record. gb Administered Medications: 07/28 22:28 Drug: Piperacillin-Tazobactam 3.375 grams [piperacillin-tazobactam 3.375 gram af2 intravenous solution] Route: IVPB; Infused Over: 30 mins; Site: left antecubital; 22:28 Drug: ketorolac 30 mg [ketorolac 30 mg/mL (1 mL) injection solution (1 mL)] Route: IVP; af2 Site: left antecubital; 23:16 Drug: vancomycin 1 grams [vancomycin 1,000 mg intravenous injection] Route: IVPB; af2 Infused Over: 60 mins; Site: left antecubital; Signatures: Dispatcher [employer] EDMS Flores Rose, Reg Reg gb Cj, Cathleeneann zo Adelina Rosenbaum, PA-C PA-C ef1 Lisa Giraldo, PILL MAKER PILL MAKER rs6 Shahrzad French RN RN af2 Dia Bedoya, MAHI RN jesg Martha Vaz,RN RN tm5 The chart was reviewed and I authenticate all verbal orders and agree with the evaluation and treatment provided.Attachments: 21:49 [facility] Payment Agreement zo 07/29 10:40 T-Sheet-- Draft Copy gb Chart Complete MTDD
--- NOTE | 2016-07-31 00:33 | EDDOCDS ---
Physician Documentation [facility] Name: Shahrzad Carrion Age: 31 yrs Sex: Female : 1985 Arrival Date: 07/28/2016 Time: 20:41 Bed I2 / M2 Private MD: NO PRIMARY PHYSICIAN, . Disposition: 07/28/16 21:05 Hospitalization ordered by Quentin Jackson for Inpatient Admission. Preliminary diagnosis are Cellulitis and abscess of mouth - Osman's Angina, Dental caries - Fracture of Tooth #19 and #30. - Bed requested for 4 [place]. - Status is Inpatient Admission. rs6 - Condition is Stable. - Problem is new. - Symptoms have improved. Historical: - Allergies: no known allergies; - Home Meds: 1. none - PMHx: heroin abuse; - PSHx: none; - Social history: Smoking status: Patient uses tobacco products, current every day smoker. No barriers to communication noted, The patient speaks fluent Swedish. - Family history: Not pertinent. - : The pt / caregiver states he / she is not on anticoagulants. Home medication list is obtained from the patient. - Exposure Risk Screening:: None identified. 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 7 in. (170.18 cm); Pain 6/10; 23:29 BP 109 / 59; Pulse 92; Resp 18; Temp 98.2(O); Pulse Ox 94% on R/A; Pain 3/10; rs6 20:43 Body Mass Index 32.89 (95.25 kg, 170.18 cm) sew MDM: 20:48 BED REQUEST+ADM ordered. EDMS 20:54 IV Saline Lock ordered. ef1 20:54 Piperacillin-Tazobactam 3.375 grams IVPB once over 30 mins; dilute in 50mL of NS or D5W ef1 ordered. 20:54 vancomycin 1 grams IVPB once over 60 mins; dilute in 250mL of NS or D5W ordered. ef1 21:13 ketorolac 30 mg IVP once ordered. ef1 21:47 Financial registration complete. zo 21:49 [facility] Payment Agreement was scanned into [employer] and attached to record. zo 22:28 Admission / Observation Status ordered. EDMS 22:28 REGULAR DIET ordered. EDMS 22:47 Attending Doctor Change: ordered. EDMS 22:51 Chest, 2 view PA, Lat Ordered. EDMS 07/29 10:40 T-Sheet-- Draft Copy was scanned into [employer] and attached to record. gb Administered Medications: 07/28 22:28 Drug: Piperacillin-Tazobactam 3.375 grams [piperacillin-tazobactam 3.375 gram af2 intravenous solution] Route: IVPB; Infused Over: 30 mins; Site: left antecubital; 22:28 Drug: ketorolac 30 mg [ketorolac 30 mg/mL (1 mL) injection solution (1 mL)] Route: IVP; af2 Site: left antecubital; 23:16 Drug: vancomycin 1 grams [vancomycin 1,000 mg intravenous injection] Route: IVPB; af2 Infused Over: 60 mins; Site: left antecubital; Signatures: Dispatcher [employer] EDMS Flores Rose, Reg Reg gb Cj, Cathleeneann zo Adelina Rosenbaum, PA-C PA-C ef1 Lisa Giraldo, PILL MACHINE OPERATOR PILL MACHINE OPERATOR rs6 Shahrzad French RN RN af2 Dia Bedoya, MAHI RN jesg Martha Vaz,RN RN tm5 The chart was reviewed and I authenticate all verbal orders and agree with the evaluation and treatment provided.Attachments: 21:49 [facility] Payment Agreement zo 07/29 10:40 T-Sheet-- Draft Copy gb Chart Complete MTDD
[2016-07-31] MEDS: AMPICILLIN SOD/SULBACTAM SOD 3 GM in D5W MINI-BAG PLUS 100 ML IV SCH ×3 (04:54→16:09)
[2016-07-31 05:51] LABS: MEAN CORPUSCULAR HEMOGLOBIN 30.9 pg (27.0-33.0); MEAN CORPUSCULAR HGB CONC 33.5 g/dl (32.0-36.5); MEAN CORPUSCULAR VOLUME 92.2 fl (80.0-96.0); RED CELL DISTRIBUTION WIDTH 11.4 % (11.5-14.5)
[2016-07-31 06:00] VITALS: BP 120/59
[2016-07-31 06:10] LABS: ALBUMIN 3.1 GM/DL (3.2-5.2); ALBUMIN/GLOBULIN RATIO 0.76 (1.00-1.93); ALKALINE PHOSPHATASE 96 U/L (45-117); ALT/SGPT 15 U/L (12-78); ANION GAP 6 MEQ/L (8-16); AST/SGOT 7 U/L (15-37); BILIRUBIN,TOTAL 0.2 MG/DL (0.2-1.0); BLOOD UREA NITROGEN 21 MG/DL (7-18); CARBON DIOXIDE LEVEL 30 MEQ/L (21-32); CHLORIDE LEVEL 108 MEQ/L (98-107); CREATININE FOR GFR 0.65 MG/DL (0.55-1.02); GLOMERULAR FILTRATION RATE > 60.0 (>60); GLUCOSE, FASTING 93 MG/DL (70-105); POTASSIUM SERUM 3.9 MEQ/L (3.5-5.1); SODIUM LEVEL 144 MEQ/L (136-145); TOTAL PROTEIN 7.2 GM/DL (6.4-8.2)
[2016-07-31] MEDS: BUPRENORPHINE/NALOXONE 2-0.5MG SUBLINGUAL TABLET(SUBOXONE) SL SCH (08:53)
[2016-07-31] MEDS ORDERED: predniSONE 20 MG TAB PO SCH (09:00)
[2016-07-31] MEDS: MOM 30ML SUSPENSION UDC PO SCH (09:04)
[2016-07-31] MEDS: ENOXAPARIN 40 MG/0.4 ML SYRINGE (J1650) SC SCH (09:04)
[2016-07-31] MEDS: NICOTINE 21MG/24HR 1 EA TRANSDERMAL TD SCH (09:04)
--- NOTE | 2016-07-31 09:48 | IPNPDOC ---
Assessment/Plan Date Seen The patient was seen on 07/31/16. Problems Problems: (1) Facial cellulitis Status: Acute Problem Text: Unasyn day #3 07/30/16 WBC 21.3 (07/29 10.3), admission 13.2-? steroid effect, decreased to prednisone 40 mg po daily (on 2 concern for airway compromise 2 STS) . Toradol prn pain. ENT consult in record Will need dental referral on DC (2) Heroin abuse Status: Acute Problem Specific Plan: Monitor Clinically Problem Text: Monitor for withdrawl symptoms. Requesting Methadone. Refusing [id number]. Recent tx in [facility] for detox, had relapse for 2 days prior to admission at [facility]. Plan / VTE VTE Prophylaxis Ordered?: Yes (lovenox) Plan Diet: Advance Subjective Review of Systems CC/HPI The patient is a 31-year-old female admitted with a reason for visit of Facial Cellulitis. Events since last encounter Feeling better. noting drainage from tooth to Left lower jaw. Maxillo facial surgery unavailable on weekend. States doing well without heroin and would like to return to [facility]. Declines need for Methadone for heroin withdrawal Constitutional: Denies: Chills, Fever, Malaise, Night Sweats, Weakness ENT: Denies: Dysphagia, Ear Pain, Head Aches Skin: Denies: Breakdown, Lesions, Rash Pulmonary: Denies: Cough, Dyspnea Cardiovascular: Denies: Chest Pain, Lt Headedness, Orthopnea, Palpitations, Paroxysmal Noc. Dyspnea Gastrointestinal: Denies: Abdominal Pain, Diarrhea, Nausea, Vomiting Genitourinary: Denies: Dysuria, Frequency, Incontinence, Retention Psych: Reports: Mood Normal, Denies: Depression, Memory Issues Objective Physical Examination General Exam: Positive: Alert, No Acute Distress Eye Exam: Positive: PERRLA ENT Exam: Positive: Other ENT (mild left facial swelling, + submandibular pain on palpation. No visible exudate) Neck Exam: Positive: Lymphadenopathy (+ left cervical LAD, tender), Supple, Negative: JVD Chest Exam: Positive: Clear to auscultation Heart Exam: Positive: Normal S2, Rate Normal Abdomen Exam: Positive: Normal bowel sounds, Soft, Negative: Tenderness Extremity Exam: Negative: Clubbing, Cyanosis, Edema Skin Exam: Positive: Nl turgor and temperature, Negative: Breakdown Neuro Exam: Positive: Normal Gait, Normal Speech Psych Exam: Positive: Anxiety (mild), Mental status NL Vital Signs/I&O Vital Signs Date Time Temp Pulse Resp B/P Pulse Ox O2 Delivery O2 Flow Rate FiO2 07/31/16 06:00 97.5 62 18 120/59 98 Room Air I&O- Last 24 Hours up to 6 AM 07/31/16 06:00 Intake Total 1840 ml Output Total 1100 ml Balance 740 ml Laboratory Data Labs 24H Laboratory Tests 2 07/31/16 05:38: Blood Urea Nitrogen 21H, Creatinine 0.65, Sodium Level 144, Potassium Level 3.9 , Chloride Level 108H, Carbon Dioxide Level 30, Calcium Level 8.0L, Aspartate Amino Transf (AST/SGOT) 7L, Alanine Aminotransferase (ALT/SGPT) 15, Alkaline Phosphatase 96, Total Bilirubin 0.2, Total Protein 7.2, Albumin 3.1L, Albumin/ Globulin Ratio 0.76L, Anion Gap 6L, Atypical Lymphocytes 3, Glomerular Filtration Rate > 60.0, Lymphocytes (Manual) 29, Monocytes (Manual) 6, Neutrophils 62, Platelet Estimate NORMAL, Red Blood Cell Morphology NORMAL CBC/BMP Laboratory Tests 07/31/16 05:38 Calcium Level 8.0 L, Aspartate Amino Transf (AST/SGOT) 7 L, Alanine Aminotransferase (ALT/SGPT) 15, Alkaline Phosphatase 96, Total Bilirubin 0.2, Total Protein 7.2, Albumin 3.1 L Bharti Abarca [employer] LEADER Jul 31, 2016 09:47
[2016-07-31 14:00] VITALS: BP 138/82
== END 2016-07-31 20:00 | disposition left against medical advice (07) | DRG 383 ==
LOC: M ED 20:41 → M ED INP 22:21 → M MSPAV 23:45
PROVIDERS: ADMIT Internal Medicine; ATTEND Family Medicine
DX: L03.211 Cellulitis of face (principal); F41.9 Anxiety disorder, unspecified; E66.01 Morbid (severe) obesity due to excess calories; F31.9 Bipolar disorder, unspecified; F10.20 Alcohol dependence, uncomplicated; Z91.5 Personal history of self-harm; F11.23 Opioid dependence with withdrawal; F17.210 Nicotine dependence, cigarettes, uncomplicated; Z68.32 Body mass index [BMI] 32.0-32.9, adult; K02.9 Dental caries, unspecified; K04.7 Periapical abscess without sinus

== ENCOUNTER 2016-12-27 12:19 | Emergency (ER) | payer MEDICAID, OTHER ==
[~2016-12-27] VITALS: Ht 170.2 cm; Wt 90.7 kg
[2016-12-27 12:20] VITALS: BP 112/55
== END 2016-12-27 13:47 | disposition home or self-care (01) ==
LOC: M ED 13:35
DX: F32.9 Major depressive disorder, single episode, unspecified (principal); F11.10 Opioid abuse, uncomplicated; F17.210 Nicotine dependence, cigarettes, uncomplicated

== ENCOUNTER → 2017-05-24 | Outpatient (REF) | payer OTHER | LOC: M LAB REF 17:20 | PROVIDERS: ATTEND Family Medicine Addiction Medicine | DX: F19.21 Other psychoactive substance dependence, in remission (principal) ==

== ENCOUNTER → 2017-05-31 | Outpatient (REF) | payer OTHER | LOC: M LAB REF 16:36 | PROVIDERS: ATTEND Family Medicine Addiction Medicine | DX: F19.21 Other psychoactive substance dependence, in remission (principal) ==

== ENCOUNTER → 2017-06-07 | Outpatient (REF) | payer OTHER ==
[2017-06-13 08:06] LABS: BENZODIAZEPINES, URINE SCREEN Negative ng/mL (Cutoff=200); FENTANYL URINE Negative (Cutoff=500); METHADONE, URINE SCREEN Negative ng/mL (Cutoff=300); OPIATES, URINE Positive ng/mL (Cutoff=300); URINE NORBUPRENORPHINE Positive (.); URINE NORBUPRENORPHINE CONFIRM 1482 ng/mL (Cutoff=10); pH, URINE 6.2 (4.5-8.9)
== END ==
LOC: M LAB REF 12:26
PROVIDERS: ATTEND Family Medicine Addiction Medicine
DX: F19.21 Other psychoactive substance dependence, in remission (principal)

== ENCOUNTER → 2017-06-15 | Outpatient (REF) | payer MEDICAID, SELFPAY ==
[2017-06-22 08:06] LABS: BENZODIAZEPINES, URINE SCREEN Negative ng/mL (Cutoff=200); METHADONE, URINE SCREEN Negative ng/mL (Cutoff=300); OPIATES, URINE Positive ng/mL (Cutoff=300); URINE NORBUPRENORPHINE Positive (.); URINE NORBUPRENORPHINE CONFIRM 1578 ng/mL (Cutoff=10); pH, URINE 7.4 (4.5-8.9)
== END ==
LOC: M LAB REF 13:34
PROVIDERS: ATTEND Family Medicine Addiction Medicine
DX: F19.21 Other psychoactive substance dependence, in remission (principal)

== ENCOUNTER → 2017-06-21 | Outpatient (REF) | payer MEDICAID | LOC: M LAB REF 16:39 | PROVIDERS: ATTEND Family Medicine Addiction Medicine | DX: F19.21 Other psychoactive substance dependence, in remission (principal) ==

== ENCOUNTER → 2017-07-19 | Outpatient (CLI) | payer OTHER ==
[2017-07-19 13:33] LABS: BASO % 0.3 % (0.0-1.0); EOS # 0.1 10^3/uL (0.0-0.50); EOS % 0.9 % (0.0-3.0); HEMATOCRIT 32.2 % (36.0-47.0); HEMOGLOBIN 10.9 g/dl (12.0-16.0); IMMATURE GRANULOCYTE # 0.1 10^3/uL (0-0); IMMATURE GRANULOCYTE % 0.5 % (0-0); LYMPH # 2.4 10^3/uL (1.5-4.5); LYMPH % 22.9 % (24.0-44.0); MEAN CORPUSCULAR HEMOGLOBIN 30.9 pg (27.0-33.0); MEAN CORPUSCULAR HGB CONC 33.9 g/dl (32.0-36.5); MEAN CORPUSCULAR VOLUME 91.2 fl (80.0-96.0); MONO # 0.6 10^3/uL (0.0-0.8); MONO % 5.7 % (0.0-5.0); NEUTROPHILS # 7.4 10^3/uL (1.8-7.7); NEUTROPHILS % 69.7 % (36.0-66.0); PLATELET COUNT, AUTOMATED 303 10^3/uL (150-450); RED BLOOD COUNT 3.53 10^6/uL (4.00-5.40); WHITE BLOOD COUNT 10.6 10^3/uL (4.0-10.0)
[2017-07-19 14:41] LABS: CONTROL LINE HCG INT CTR LINE PRESENT; HCG, SERUM QUALITATIVE POSITIVE (NEGATIVE)
[2017-07-19 15:45] LABS: HEPATITIS B CORE ANTIBODY IGM NEGATIVE (NEGATIVE); HEPATITIS C VIRUS ABY INDEX 0.1 INDEX (<0.8)
[2017-07-19 15:47] LABS: HIV 1&2 SCREEN CENTAUR NEGATIVE (NEGATIVE)
[2017-07-19 15:48] LABS: HEPATITIS A ANTIBODY IGM NEGATIVE (NEGATIVE)
[2017-07-19 16:05] LABS: ALBUMIN 3.4 GM/DL (3.2-5.2); ALBUMIN/GLOBULIN RATIO 0.97 (1.00-1.93); ALKALINE PHOSPHATASE 95 U/L (45-117); ALT/SGPT 31 U/L (12-78); ANION GAP 8 MEQ/L (8-16); AST/SGOT 18 U/L (7-37); BILIRUBIN,TOTAL 0.2 MG/DL (0.2-1.0); BLOOD UREA NITROGEN 12 MG/DL (7-18); CALCIUM LEVEL 8.7 MG/DL (8.5-10.1); CARBON DIOXIDE LEVEL 28 MEQ/L (21-32); CHLORIDE LEVEL 104 MEQ/L (98-107); CHOLESTEROL LEVEL 171 MG/DL (<200); CHOLESTEROL RISK RATIO 2.342 (<5); GLOMERULAR FILTRATION RATE > 60.0 (>60); GLUCOSE, FASTING 59 MG/DL (70-105); HCG, SERUM QUANTITATIVE 25412 MIU/ML; HDL CHOLESTEROL 73 MG/DL (>40); LDL CHOLESTEROL 75.8 MG/DL (<100); NON-HDL-C 98 MG/DL; POTASSIUM SERUM 3.8 MEQ/L (3.5-5.1); SODIUM LEVEL 140 MEQ/L (136-145); THYROID STIMULATING HORMONE 0.895 uIU/ML (0.358-3.740); TOTAL PROTEIN 6.9 GM/DL (6.4-8.2); TRIGLYCERIDES LEVEL 111 MG/DL (<150)
== END ==
LOC: M LAB 12:39
DX: Z00.2 Encounter for examination for period of rapid growth in childhood (principal)
CPT/HCPCS: 84443

== ENCOUNTER 2017-08-15 13:26 | Outpatient (RCR) | payer OTHER | END 2017-09-06 | LOC: M OUTALCOH 13:26 | DX: F11.20 Opioid dependence, uncomplicated (principal); Z72.0 Tobacco use ==

== ENCOUNTER 2019-02-23 10:22 | Emergency (ER) | payer OTHER ==
[~2019-02-23] VITALS: Ht 170.2 cm; Wt 98.7 kg
[2019-02-23] MEDS ORDERED: BUPR8SUB (10:29)
[2019-02-23 12:28] LABS: BASO # 0.1 10^3/uL (0.0-0.2); BASO % 0.4 % (0.0-1.0); EOS # 0.1 10^3/uL (0.0-0.50); EOS % 0.9 % (0.0-3.0); HEMATOCRIT 40.8 % (36.0-47.0); LYMPH % 25.9 % (24.0-44.0); MEAN CORPUSCULAR HEMOGLOBIN 31.8 pg (27.0-33.0); MEAN CORPUSCULAR HGB CONC 34.3 g/dl (32.0-36.5); MEAN CORPUSCULAR VOLUME 92.7 fl (80.0-96.0); MONO # 0.7 10^3/uL (0.0-0.8); MONO % 5.8 % (0.0-5.0); NEUTROPHILS # 7.7 10^3/uL (1.8-7.7); NEUTROPHILS % 66.7 % (36.0-66.0); PLATELET COUNT, AUTOMATED 272 10^3/uL (150-450); WHITE BLOOD COUNT 11.6 10^3/uL (4.0-10.0)
[2019-02-23] MEDS ORDERED: KETOROLAC 30 MG/ML VIAL (J1885) IV ONE (12:45)
[2019-02-23 13:58] LABS: ACETAMINOPHEN LEVEL < 2.0 UG/ML (10.0-30.0); ALBUMIN 4.2 GM/DL (3.2-5.2); ALT/SGPT 23 U/L (12-78); BILIRUBIN,TOTAL 0.6 MG/DL (0.2-1.0); BLOOD UREA NITROGEN 8 MG/DL (7-18); CALCIUM LEVEL 9.5 MG/DL (8.5-10.1); CARBON DIOXIDE LEVEL 26 MEQ/L (21-32); CHLORIDE LEVEL 108 MEQ/L (98-107); CREATININE FOR GFR 0.63 MG/DL (0.55-1.30); GLOMERULAR FILTRATION RATE > 60.0 (>60); GLUCOSE, FASTING 83 MG/DL (70-100); POTASSIUM SERUM 5.4 MEQ/L (3.5-5.1); SODIUM LEVEL 140 MEQ/L (136-145); TOTAL PROTEIN 8.1 GM/DL (6.4-8.2)
[2019-02-23] MEDS ORDERED: ISOVUE-370 76% 100ML VIAL (Q9967) As Ordered ONE (14:00)
[2019-02-23] MEDS ORDERED: MAGICMW SSP (14:55)
[2019-02-23] MEDS ORDERED: NAPR-837 PO (14:55)
[2019-02-23] MEDS ORDERED: CLIN150C14 PO (14:55)
[2019-02-23] MEDS ORDERED: CLINDAMYCIN 150 MG CAP PO ONE (15:00)
[2019-02-23 15:04] VITALS: BP 103/53
--- NOTE | 2019-02-24 09:15 | REP ---
CT SOFT TISSUE NECK WITH CONTRAST: 02/23/2019. Clinical history: Dental abscess with facial and anterior neck edema. Technique: Bolus of 75 ml Isovue 370 scanning through the neck with coronal and sagittal reconstructions. Comparison: 07/28/2016. Findings: There is subcutaneous soft tissue edema about the left face, particularly adjacent to the mandible. On image 34 axial and 20 coronal there is a small air pocket with adjacent fluid that may reflect a small inflammatory process. There is adenopathy at the carotid space adjacent to the adjacent to the submandibular glands as well. The left greater than right. There is edema along the peripheral margin of the mandible its near its alveolar ridge and deep to the platysma. This suggests a dental abscess or phlegmon. I do not see effacement of the airway at the nasopharynx, oropharynx or hypopharynx, except for the left piriform sinus. I do not see evidence of a mass otherwise. The right side was unremarkable. The bone windows show carious dentition involving the second molar on the left mandible and its adjacent first molar. Periapical abscess noted with a lucency at the roots of the second molar on that left side carious dentition on the right involving first and second molars of the mandible without the soft tissue swelling or periapical abscesses. There is also carious dentition in the maxilla and some previous extraction as molars on the right. Anterior posterior strap muscles otherwise intact. Thyroid lobes trachea and supraclavicular region show no mass or other significant finding. Impression: 1. Early dental abscess or phlegmon involving the left maxilla with soft tissue swelling and a single air bubble just lateral to the left mandibular 2nd molar. Carious dentition involving the left first and second molars and a periapical abscess at the base of the roots of the second molar. 2. There is adenopathy of the left jugular chain and in the carotid space as reactive nodes to this infection. No airway compromise at this time. Electronically Signed by Clifton White MD 02/24/2019 07:38 A
== END 2019-02-23 15:06 | disposition home or self-care (01) ==
LOC: M ED 10:22
DX: K04.7 Periapical abscess without sinus (principal); K02.9 Dental caries, unspecified; K08.89 Other specified disorders of teeth and supporting structures; S02.5XXA Fracture of tooth (traumatic), initial encounter for closed fracture; X58.XXXA Exposure to other specified factors, initial encounter; Y92.9 Unspecified place or not applicable; Y93.9 Activity, unspecified; Y99.9 Unspecified external cause status; Z79.899 Other long term (current) drug therapy
CPT/HCPCS: 36415; 70491; 80053; 85025; 96374; 99284; G0480; J1885; Q9967

== ENCOUNTER → 2020-09-01 | Outpatient (REF) | payer OTHER, MEDICAID ==
[~2020-09-01] MED LIST: BUPR8SUB; CLIN150C15 PO; MAGICMW SSP; NAPR-837 PO
[2020-09-01 17:21] LABS: BASO # 0.1 10^3/uL (0.0-0.2); BASO % 0.6 % (0.0-1.0); EOS # 0.2 10^3/uL (0.0-0.5); EOS % 1.7 % (0.0-3.0); HEMATOCRIT 39.1 % (36.0-47.0); HEMOGLOBIN 12.6 g/dl (12.0-15.5); LYMPH # 2.8 10^3/uL (1.5-5.0); LYMPH % 31.9 % (24.0-44.0); MEAN CORPUSCULAR HEMOGLOBIN 29.4 pg (27.0-33.0); MEAN CORPUSCULAR HGB CONC 32.2 g/dl (32.0-36.5); MEAN CORPUSCULAR VOLUME 91.1 fl (80.0-96.0); MONO # 0.4 10^3/uL (0.0-0.8); MONO % 4.6 % (2.0-8.0); NEUTROPHILS # 5.3 10^3/uL (1.5-8.5); NEUTROPHILS % 60.9 % (36.0-66.0); PLATELET COUNT, AUTOMATED 279 10^3/uL (150-450); RED BLOOD COUNT 4.29 10^6/uL (4.00-5.40); WHITE BLOOD COUNT 8.6 10^3/uL (4.0-10.0)
[2020-09-01 17:48] LABS: ALBUMIN 4.2 GM/DL (3.2-5.2); ALT/SGPT 30 U/L (12-78); BILIRUBIN,TOTAL 0.2 MG/DL (0.2-1.0); BLOOD UREA NITROGEN 16 MG/DL (7-18); CARBON DIOXIDE LEVEL 26 MEQ/L (21-32); CHLORIDE LEVEL 106 MEQ/L (98-107); CHOLESTEROL LEVEL 185 MG/DL (<200); CHOLESTEROL RISK RATIO 3.303 (<5); CREATININE FOR GFR 0.82 MG/DL (0.55-1.30); FREE T4 0.96 NG/DL (0.76-1.46); GLOMERULAR FILTRATION RATE > 60.0 (>60); GLUCOSE, FASTING 83 MG/DL (70-100); HDL CHOLESTEROL 56 MG/DL (>40); LDL CHOLESTEROL 117 MG/DL (<100); NON-HDL-C 129 MG/DL; POTASSIUM SERUM 4.4 MEQ/L (3.5-5.1); SODIUM LEVEL 140 MEQ/L (136-145); TOTAL PROTEIN 7.5 GM/DL (6.4-8.2); TRIGLYCERIDES LEVEL 59 MG/DL (<150)
[2020-09-01 17:50] LABS: HEMOGLOBIN A1c 5.1 %
== END ==
LOC: M SFHCADAM 12:00
PROVIDERS: ATTEND Physician Assistant
DX: R06.81 Apnea, not elsewhere classified (principal); E66.9 Obesity, unspecified; R42 Dizziness and giddiness; Z13.220 Encounter for screening for lipoid disorders; R63.5 Abnormal weight gain

== ENCOUNTER → 2022-07-18 | Outpatient (CLI) | payer OTHER ==
[~2022-07-18] MED LIST changes: -BUPR8SUB; +BUPR8SUB PO; -CLIN150C15 PO; +CLIN150C17 PO
== END ==
LOC: M LABSMTC 09:53
PROVIDERS: ATTEND Anesthesiology
DX: Z01.812 Encounter for preprocedural laboratory examination (principal); Z20.822 Contact with and (suspected) exposure to COVID-19

== ENCOUNTER 2022-07-22 10:11 | Day surgery (SDC) | payer MEDICAID, OTHER ==
[~2022-07-22] VITALS: Ht 165.1 cm; Wt 96.2 kg
[~2022-07-22 10:11] MED LIST changes: +AMPICILLIN SOD/SULBACTAM SOD 3 GM in D5W MINI-BAG PLUS 100 ML IV ONE; +CHLORHEXIDINE GLUCONATE 0.12 % 15ML UDC (PERIDEX ORAL RINSE) As Ordered ONE; +LIDOCAINE 2% 100MG/5ML SDV (FOR ANES.) As Ordered ONE; +ONDANSETRON 4MG 2ML VIAL As Ordered ONE; +ROCURONIUM BROMIDE 50MG/5ML VIAL As Ordered ONE; +SUGAMMADEX SODIUM 500 MG/5 ML VIAL (BRIDION) As Ordered ONE; +propofoL 200 MG/20 ML VIAL As Ordered ONE
[2022-07-22] MEDS ORDERED: LIDOCAINE 2% W/ EPINEPHRINE 1.7 ML DENTAL INJ As Ordered ONE (10:43)
[2022-07-22] MEDS ORDERED: MIDAZOLAM INJ 2MG/2ML VIAL As Ordered ONE (10:49)
[2022-07-22] MEDS ORDERED: fentaNYL 100 MCG/2 ML INJECTION As Ordered ONE (10:49)
[2022-07-22] MEDS: BUPIVACAINE LIPOSOME/PF 1.3% 20ML VIAL (13.3MG/ML)(EXPAREL) As Ordered ONE ×2 (11:47→12:30)
[2022-07-22] MEDS ORDERED: OXYMETAZOLINE 0.05% NASAL SPRAY (AFRIN) As Ordered ONE (12:16)
[2022-07-22] MEDS ORDERED: oxyCODONE 5MG TAB PO PRN (12:30)
[2022-07-22] MEDS ORDERED: ONDANSETRON 4MG 2ML VIAL IV PRN (12:30)
[2022-07-22] MEDS ORDERED: LR 1,000 ML IV SCH (12:30)
[2022-07-22] MEDS ORDERED: fentaNYL 100 MCG/2 ML INJECTION IV PRN (12:30)
[2022-07-22] MEDS ORDERED: HYDROMORPHONE HCL 0.5 MG/ 0.5 ML SYRINGE IV PRN (12:30)
[2022-07-22] MEDS ORDERED: KETOROLAC 30 MG/ML 1ML VIAL IV ONE (12:50)
[2022-07-22] MEDS ORDERED: traMADol 50 MG TAB PO ONE (13:30)
[2022-07-22 13:52] VITALS: BP 115/58
== END 2022-07-22 14:17 | disposition home or self-care (01) ==
LOC: M SDC 10:11
PROVIDERS: ATTEND Dentist
DX: K02.9 Dental caries, unspecified (principal); F11.11 Opioid abuse, in remission; F17.210 Nicotine dependence, cigarettes, uncomplicated
CPT/HCPCS: 81025; 88300; C9290; D7140; D7210; D7240; D9223; J1100; J2405

== ENCOUNTER → 2023-02-01 | Outpatient (REF) | payer OTHER, MEDICAID ==
[~2023-02-01] MED LIST changes: -AMPICILLIN SOD/SULBACTAM SOD 3 GM in D5W MINI-BAG PLUS 100 ML IV ONE; -CHLORHEXIDINE GLUCONATE 0.12 % 15ML UDC (PERIDEX ORAL RINSE) As Ordered ONE; -LIDOCAINE 2% 100MG/5ML SDV (FOR ANES.) As Ordered ONE; -ONDANSETRON 4MG 2ML VIAL As Ordered ONE; -ROCURONIUM BROMIDE 50MG/5ML VIAL As Ordered ONE; -SUGAMMADEX SODIUM 500 MG/5 ML VIAL (BRIDION) As Ordered ONE; -propofoL 200 MG/20 ML VIAL As Ordered ONE
[2023-02-01 17:41] LABS: GC DNA AMPLIFICATION NEGATIVE (NEGATIVE)
== END ==
LOC: M SFHCADAM 15:54
PROVIDERS: ATTEND Physician Assistant
DX: Z12.4 Encounter for screening for malignant neoplasm of cervix (principal); Z11.3 Encounter for screening for infections with a predominantly sexual mode of transmission

== ENCOUNTER → 2023-11-30 | Outpatient (REF) | payer OTHER, MEDICAID | LOC: M SFHCADAM 12:07 | PROVIDERS: ATTEND Physician Assistant Medical | DX: R05.1 Acute cough (principal) ==